=== PATIENT | female | born 2000 | race Caucasian/White ===

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

== ENCOUNTER 2020-01-13 22:20 | Emergency (ER) | payer OTHER ==
[~2020-01-13] VITALS: Ht 170.2 cm; Wt 102.0 kg
--- NOTE | 2020-01-13 22:44 | PHYS DOC ---
Past History Past Medical History: No Pertinent History, Anxiety, Bipolar, Bronchitis, Other Additional Past Medical Histor: cutting Past Surgical History: No Surgical History Smoking: Cigarettes Alcohol Use: None Drug Use: Marijuana, Methamphetamine General Adult HPI: HPI: ".. I ve been having chest pain for the last three days... more wheezing.... the chest pain is central..this bone here (sternum) is tender.. .. and today it has been constant all day.. " Patient is a 19 year old female who presents with above hx and complaints of fever, chills, shortness of breath, with central chest pain that is reproduce on palpation of sternum. Patient denies any trauma. Patient not had any documented fevers but subjective complaints of fever. Patient does continue to smoke tobacco. Not currently using methamphetamine or marijuana. . Patient does not do flu vaccination. In past is followed with Dr. White. 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 Pt. has past history of anxiety, bipolar, depression, self cutting. The patient is taking vitamins. No history of pulmonary DVT's with her family members. No history of DVTs or coagulopathy with her family members. This is her first . Patient denies any vaginal discharge or bleeding. Patient denies any abdomen pain. Denies trauma. Denies any specific ill contacts. Denies COVID risks or contacts. Review of Systems: Review of Systems: Constitutional: Denies fever or chills Eyes: Denies change in visual acuity HENT: Denies nasal congestion or sore throat Respiratory: Complaint of wheezing Cardiovascular: Complaints of sternum chest pain GI: Denies abdominal pain, nausea, vomiting, bloody stools or diarrhea : Denies dysuria Musculoskeletal: Denies back pain or joint pain Integument: Denies rash Neurologic: Denies headache, focal weakness or sensory changes Endocrine: Denies polyuria or polydipsia Lymphatic: Denies swollen glands Psychiatric: Denies depression or anxiety Heart Score: HEART Score for Chest Pain: HEART Score for Chest Pain Response (Comments) Value History Slighlty/Non-Suspicious 0 ECG Normal 0 Age < 45 0 Risk Factors 1 or 2 Risk Factors 1 Troponin < Normal Limit 0 Total 1 Risk Factors: Risk Factors: DM, Current or recent (<one month) smoker, HTN, HLP, family history of CAD, obesity. Risk Scores: Score 0 - 3: 2.5% MACE over next 6 weeks - Discharge Home Score 4 - 6: 20.3% MACE over next 6 weeks - Admit for Clinical Observation Score 7 - 10: 72.7% MACE over next 6 weeks - Early Invasive Strategies Family History: Family History: Noncontributory to presentation Current Medications: Current Meds: See nursing for home meds Allergies: Allergies: Allergies Coded Allergies Type Severity Reaction Last Updated Verified No Known Drug Allergies 01/01/17 No Physical Exam: PE: Constitutional: no acute distress, non-toxic appearance. [] HENT: Normocephalic, atraumatic, bilateral external ears normal, oropharynx moist, no oral exudates, nose normal. [] Eyes: PERRLA, EOMI, conjunctiva normal, no discharge. Glasses Neck: Normal range of motion, no tenderness, supple, no stridor. [] Cardiovascular:Heart rate regular rhythm, no murmur [] Lungs & Thorax: Bilateral breath sounds few scattered wheezes on auscultation [] the sternum tender to palpation Abdomen: Bowel sounds normal, soft, no tenderness, no masses, no pulsatile masses. [] Skin: Warm, dry, no erythema, no rash. Multiple self cutting scars Back: No tenderness, no CVA tenderness. [] Extremities: No tenderness, no cyanosis, no clubbing, ROM intact, no edema. No cording in legs. Neurologic: Alert and oriented X 3, normal motor function, normal sensory function, no focal deficits noted. [] Psychologic: Affect anxious, judgement normal, mood normal. [] EKG: EKG: EKG shows a sinus rhythm at 76 bpm. No findings of acute STEMI with contralateral changes. [] Radiology/Procedures: Radiology/Procedures: [][address] [address] IMAGING REPORT Signed PATIENT: PRICILA DOWLING ACCOUNT: [id number] : 2000 LOCATION: ER AGE: 19 SEX: F EXAM STATUS: DEP ER ORD. PHYSICIAN: RADHA LOPEZ MD REASON: cp PROCEDURE: PORTABLE CHEST 1V EXAM: CHEST 1 VIEW History: Chest pain COMPARISON: 06/16/2019 TECHNIQUE: Single portable radiograph of the chest FINDINGS: The cardiac silhouette is unremarkable. Mild bibasilar lung atelectasis or infiltrates. The costophrenic sulci are clear and well demarcated. IMPRESSION: Mild bibasilar lung atelectasis or infiltrates. Electronically signed by: Dillon Snell MD (01/14/2020 8:40 AM) [id number] DICTATED AND SIGNED BY: DILLON SNELL MD DATE: 01/14/2040 CC: RADHA LOPEZ MD; PCP,NO ~ Course & Med Decision Making: Course & Med Decision Making Pertinent Labs and Imaging studies reviewed. (See chart for details) Pt. observed for Monitor changes x 4 hrs. No rhythm changes or desaturations noted. Pt declined to wait for second trop. level and labs or procedures ( US, CT ect). Requesting discharge. Patient strongly encouraged to stop smoking. Patient to continue vitamins. Patient determined the name of her [employer] doctor and where she prac tices. May plan for hospital where she plans to deliver. Recommend patient be consistent on her care and follow-ups. If concerned about chest pain get outpatient stress testing and cardiology consult at the hospital where her OB practice for continuity of care. May take Tylenol for discomfort. Recommend close follow-up of her primary care and OB. Patient take baby aspirin daily. Pt. must stop smoking. Self isolate. Wear a mask covering nose and mouth and any interactions are away from her home. Impression: 1. Sternal chest wall pain 2. Tobacco abuse 3. Viral syndrome [] Dragon Disclaimer: Keturah Disclaimer: This electronic medical record was generated, in whole or in part, using a voice recognition dictation system. Departure Departure: Disposition: HOME/RESIDENCE PRIOR TO ADM Condition: STABLE Referrals: PCP,ABBY (PCP) Keturah Disclaimer This chart was dictated in whole or in part using Voice Recognition software in a busy, high-work load, and often noisy Emergency Department environment. It may contain unintended and wholly unrecognized errors or omissions. RADHA LOPEZ MD Jan 13, 2020 22:44
[2020-01-13] MEDS ORDERED: ASPIRIN CHEWABLE 81 MG TABLET. PO ONE (23:00)
[2020-01-13] MEDS ORDERED: IV NORMAL SALINE 1,000ML 1,000 ML IV SCH (23:00)
[2020-01-13 23:52] LABS: BASO # 0.1 x10^3/uL (0.0-0.2); BASO % 1 % (0-3); EOS # 0.2 x10^3/uL (0.0-0.7); EOS % 2 % (0-3); HEMATOCRIT 35.9 % (36.0-47.0); LYMPH # 3.2 x10^3/uL (1.0-4.8); LYMPH % 30 % (24-48); MEAN CORPUSCULAR HEMOGLOBIN 30 pg (25-35); MEAN CORPUSCULAR HGB CONC 34 g/dL (31-37); MEAN CORPUSCULAR VOLUME 88 fL (79-100); MONO # 0.7 x10^3/uL (0.0-1.1); MONO % 6 % (0-9); NEUT # 6.5 x10^3uL (1.8-7.7); NEUT % 61 % (31-73); PLATELET COUNT 282 x10^3/uL (140-400); RED BLOOD COUNT 4.08 x10^6/uL (3.50-5.40); RED CELL DISTRIBUTION WIDTH 12.8 % (11.5-14.5); WHITE BLOOD COUNT 10.6 x10^3/uL (4.0-11.0)
[2020-01-13 23:56] LABS: CALCIUM 8.8 mg/dL (8.5-10.1); CREATININE 0.6 mg/dL (0.6-1.0); GFR 128.8; POTASSIUM 3.4 mmol/L (3.5-5.1)
[2020-01-13 23:57] LABS: BARBITURATES NEG (NEG); BENZODIAZEPINES NEG (NEG); CANNABINOIDS NEG (NEG); COCAINE NEG (NEG); METHADONE NEG (NEG); OPIATES NEG (NEG); PHENCYCLIDINE NEG (NEG)
[2020-01-13 23:58] LABS: AMPHETAMINE/METHAMPHETAMINE NEG (NEG)
[2020-01-14 00:11] LABS: BILIRUBIN,URINE NEG (NEG); CLARITY,URINE CLEAR; COLOR,URINE YELLOW; GLUCOSE,URINE NEG (NEG)
[2020-01-14 00:11] LABS: ALBUMIN 2.8 g/dL (3.4-5.0); DIRECT BILIRUBIN 0.1 mg/dL (0.0-0.2); MAGNESIUM 1.8 mg/dL (1.8-2.4); TOTAL BILIRUBIN 0.1 mg/dL (0.2-1.0); TOTAL PROTEIN 6.5 g/dL (6.4-8.2)
[2020-01-14 00:12] LABS: BACTERIA,URINE 0 /HPF (0-FEW); NITRITE,URINE NEG (NEG); SQUAMOUS EPITHELIAL CELL,UR FEW /LPF; UROBILINOGEN,URINE 0.2 mg/dL (0.2 mg/dL); WBC,URINE OCC /HPF (0-4)
[2020-01-14] MEDS ORDERED: MAGNESIUM HYDROXIDE 2,400 MG/30 ML ORAL.SUSP. PO ONE (00:15)
[2020-01-14] MEDS ORDERED: POTASSIUM CHLORIDE 20 MEQ TABLET.ER. PO ONE (00:15)
[2020-01-14 00:20] LABS: INFLUENZA A PATIENT NEGATIVE (NEGATIVE); INFLUENZA B PATIENT NEGATIVE (NEGATIVE)
[2020-01-14 00:47] VITALS: BP 129/77
--- NOTE | 2020-01-14 06:41 | EKG ---
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
--- NOTE | 2020-01-14 08:43 | RAD ---
EXAM: CHEST 1 VIEW History: Chest pain COMPARISON: 06/16/2019 TECHNIQUE: Single portable radiograph of the chest FINDINGS: The cardiac silhouette is unremarkable. Mild bibasilar lung atelectasis or infiltrates. The costophrenic sulci are clear and well demarcated. IMPRESSION: Mild bibasilar lung atelectasis or infiltrates. Electronically signed by: Dillon Snell MD (01/14/2020 8:40 AM) [id number]
== END 2020-01-14 02:30 | disposition home or self-care (01) ==
LOC: ER 22:20
DX: O26.892 Other specified pregnancy related conditions, second trimester (principal); R07.89 Other chest pain; B34.9 Viral infection, unspecified; O99.332 Smoking (tobacco) complicating pregnancy, second trimester; Z3A.19 19 weeks gestation of pregnancy
CPT/HCPCS: 36415; 71045; 80048; 80076; 80307; 81001; 82550; 83690; 83735; 83880; 84443; 84484; 85025; 85379; 85610; 85730; 87070; 87804; 87880; 93005; 96360; 96361; 99285; J7030

== ENCOUNTER 2020-01-26 17:42 | Emergency (ER) | payer OTHER ==
[~2020-01-26] VITALS: Ht 170.2 cm; Wt 102.0 kg
--- NOTE | 2020-01-26 18:25 | PHYS DOC ---
Past History Past Medical History: No Pertinent History, Anxiety, Bipolar, Bronchitis, Other Additional Past Medical Histor: cutting Past Surgical History: No Surgical History Smoking: Cigarettes Alcohol Use: None Drug Use: Marijuana, Methamphetamine General Adult EDM: Chief Complaint: PAIN ON URINATION HPI: HPI: 19 yo female that is 20 weeks presents with dysuria for a couple of weeks. She has had intermittant symptoms for more than a month. Her last OB visit, her urine was fine. She wants to be tested for STDs. She states she is in a monogomous relationship and no high risk behaviors. Denies vaginal discharge, odor or itching. "People" told her her symptoms are not a typical UTI, so she needed an STD check. She is switching OBs, so she doesn't have an appointment for a month. Denies fever or chills. Review of Systems: Review of Systems: Constitutional: Denies fever or chills Eyes: Denies change in visual acuity HENT: Denies nasal congestion or sore throat Respiratory: Denies cough or shortness of breath Cardiovascular: Denies chest pain or edema GI: Denies abdominal pain, nausea, vomiting, bloody stools or diarrhea : Dysuria Musculoskeletal: Denies back pain or joint pain Integument: Denies rash Neurologic: Denies headache, focal weakness or sensory changes Endocrine: Denies polyuria or polydipsia Lymphatic: Denies swollen glands Psychiatric: Denies depression or anxiety Heart Score: Risk Factors: Risk Factors: DM, Current or recent (<one month) smoker, HTN, HLP, family history of CAD, obesity. Risk Scores: Score 0 - 3: 2.5% MACE over next 6 weeks - Discharge Home Score 4 - 6: 20.3% MACE over next 6 weeks - Admit for Clinical Observation Score 7 - 10: 72.7% MACE over next 6 weeks - Early Invasive Strategies Allergies: Allergies: Allergies Coded Allergies Type Severity Reaction Last Updated Verified No Known Drug Allergies 01/01/17 No Physical Exam: PE: Constitutional: Well developed, well nourished, no acute distress, non-toxic appearance. [] HENT: Normocephalic, atraumatic, bilateral external ears normal, oropharynx moist, no oral exudates, nose normal. [] Eyes: PERRLA, EOMI, conjunctiva normal, no discharge. [] Neck: Normal range of motion, no tenderness, supple, no stridor. [] Cardiovascular:Heart rate regular rhythm, no murmur [] Lungs & Thorax: Bilateral breath sounds clear to auscultation [] Abdomen: Bowel sounds normal, soft, no tenderness, no masses, no pulsatile masses. [] Skin: Warm, dry, no erythema, no rash. [] Back: No tenderness, no CVA tenderness. [] Extremities: No tenderness, no cyanosis, no clubbing, ROM intact, no edema. [] Neurologic: Alert and oriented X 3, normal motor function, normal sensory function, no focal deficits noted. [] Psychologic: Affect normal, judgement normal, mood normal. : Shaved pubic hair, normal external exam. Vaginal discharge a clear to light white. No obvious odor. No pain with exam. Cervix not completely visualized. [] EKG: EKG: [] Radiology/Procedures: Radiology/Procedures: [] Course & Med Decision Making: Course & Med Decision Making Pertinent Labs and Imaging studies reviewed. (See chart for details) The patient does not really want to wait around for her results she would like to go home and if we need to send in a prescription that is fine with her. This is reasonable. Her urinalysis is negative for infection. She is stable for discharge at this time. [] Keturah Disclaimer: Keturah Disclaimer: This electronic medical record was generated, in whole or in part, using a voice recognition dictation system. Departure Departure: Impression: Primary Impression: Dysuria Additional Impression: Disposition: 01 DC HOME SELF CARE/HOMELESS Condition: STABLE Referrals: PCP,NO (PCP) Patient Instructions: Dysuria-Brief SARAY APARICIO DO Jan 26, 2020 18:25
[2020-01-26 19:00] LABS: BACTERIA,URINE 0 /HPF (0-FEW); BILIRUBIN,URINE NEG (NEG); CLARITY,URINE CLEAR; COLOR,URINE STRAW; GLUCOSE,URINE NEG (NEG); NITRITE,URINE NEG (NEG); RBC,URINE 0 /HPF (0-2); SQUAMOUS EPITHELIAL CELL,UR FEW /LPF; UROBILINOGEN,URINE 0.2 mg/dL (0.2 mg/dL); WBC,URINE 0 /HPF (0-4)
[2020-01-29 18:09] LABS: CHLAMYDIA PROBE Negative (Negative)
== END 2020-01-26 19:45 | disposition home or self-care (01) ==
LOC: ER 17:42
DX: O26.892 Other specified pregnancy related conditions, second trimester (principal); R30.0 Dysuria; O99.332 Smoking (tobacco) complicating pregnancy, second trimester; Z3A.20 20 weeks gestation of pregnancy
CPT/HCPCS: 36415; 81001; 87491; 87591; 99283; Q0111

== ENCOUNTER 2020-02-26 11:45 | Emergency (ER) | payer OTHER ==
[~2020-02-26] VITALS: Ht 170.2 cm; Wt 104.5 kg
[2020-02-26 11:50] VITALS: BP 146/78
--- NOTE | 2020-02-26 12:41 | PHYS DOC ---
Past History Past Medical History: Anxiety, Bipolar, Bronchitis, Other Additional Past Medical Histor: cutting Past Surgical History: No Surgical History Smoking: Cigarettes Alcohol Use: None Drug Use: Marijuana, Methamphetamine General Adult EDM: Chief Complaint: SORE THROAT HPI: HPI: Patient is a 19-year-old female who is 6 months presents with a 2-day history of cough congestion and a sore throat. Patient denies any fevers chills or vomiting. Patient states symptoms are worse with swallowing and activity and better with rest. Patient has no known sick contacts. Patient denies any complaints at this time. Patient states the baby is moving fine denies abdominal pain. Review of Systems: Review of Systems: Constitutional: Denies fever or chills Eyes: Denies change in visual acuity HENT: Complains of nasal congestion sore throat Respiratory: Complains of cough but denies shortness of breath Cardiovascular: Denies chest pain or edema GI: Denies abdominal pain, nausea, vomiting, bloody stools or diarrhea : Denies dysuria, denies vaginal bleeding Musculoskeletal: Denies back pain or joint pain Integument: Denies rash Neurologic: Denies headache, focal weakness or sensory changes Endocrine: Denies polyuria or polydipsia Lymphatic: Denies swollen glands Psychiatric: Denies depression or anxiety Allergies: Allergies: Allergies Coded Allergies Type Severity Reaction Last Updated Verified No Known Drug Allergies 01/01/17 No Physical Exam: PE: Constitutional: Well developed, well nourished, no acute distress, non-toxic appearance. [] HENT: Normocephalic, atraumatic, bilateral external ears normal, pharyngeal erythema without tonsillar exudate or abscess, nose normal. [] Eyes: PERRLA, EOMI, conjunctiva normal, no discharge. [] Neck: Normal range of motion, no tenderness, supple, no stridor. [] No meningeal signs Cardiovascular:Heart rate regular rhythm, peripheral pulses are intact, cap refill is brisk Lungs & Thorax: Bilateral breath sounds clear, no respiratory distress Abdomen: Gravid uterus is nontender without guarding or rebound Skin: Warm, dry, no erythema, no rash. [] Back: No tenderness, no CVA tenderness. [] Extremities: No tenderness, no cyanosis, no clubbing, ROM intact, no edema. [] Neurologic: Alert and oriented X 3, normal motor function, normal sensory function, no focal deficits noted. [] Psychologic: Affect normal, judgement normal, mood normal. [] Current Patient Data: Labs: Laboratory Tests Test 02/26/20 12:58 Group A Streptococcus Rapid Negative Vital Signs: Vital Signs Date Time Temp Pulse Resp B/P (MAP) Pulse Ox O2 Delivery O2 Flow Rate FiO2 02/26/20 11:50 98.3 98 16 146/78 (100) 96 Room Air EKG: EKG: [] Radiology/Procedures: Radiology/Procedures: [] Heart Score: Risk Factors: Risk Factors: DM, Current or recent (<one month) smoker, HTN, HLP, family history of CAD, obesity. Risk Scores: Score 0 - 3: 2.5% MACE over next 6 weeks - Discharge Home Score 4 - 6: 20.3% MACE over next 6 weeks - Admit for Clinical Observation Score 7 - 10: 72.7% MACE over next 6 weeks - Early Invasive Strategies Course & Med Decision Making: Course & Med Decision Making Pertinent Labs and Imaging studies reviewed. (See chart for details) [] 19-year-old female presents with URI symptoms. Patient has a negative strep test. No peritonsillar abscess on exam. Patient is offered COVID-19 ~isolate till results come back. Keturah Disclaimer: Keturah Disclaimer: This electronic medical record was generated, in whole or in part, using a voice recognition dictation system. Departure Departure: Impression: Primary Impression: Viral pharyngitis Disposition: 01 DC HOME SELF CARE/HOMELESS Condition: STABLE Referrals: PCPABBY (PCP) [facility] [address] [place] [address] [facility] [address] [place] [address] [facility] [address] Patient Instructions: Viral Syndrome Additional Instructions: You have been tested for or diagnosed with COVID-19. It is an infection caused by a new type of coronavirus. COVID-19 will cause cold-like or mild flu symptoms in most. It can cause more severe symptoms like problems breathing in some. There is no treatment for COVID-19. The body will clear the infection over time. Self-care will help to ease discomfort. Steps to Take: Self-Care Rest as needed. Healthy habits may help you feel better. Steps include: Choose healthy foods including fruits and vegetables. Drink water throughout the day. Get plenty of sleep each night. If you smoke, try to quit. It may ease breathing. Avoid alcohol. Keep Others Healthy The virus can spread to others. Droplets are released every time you sneeze or cough. The droplets can get into the mouth, nose, or eyes of people near you and lead to infection. To lower the chances of spreading COVID-19 to others: Stay at home until your doctor has said it is safe to leave. If you tested positive this will mean staying isolated until both of the following are true: At least 7 days have passed since the start of illness. You are free of fever for at least 72 hours without the use of medicine. During this time: - Avoid public areas, events, or transportation. Do not return to work or school until your doctor has said it is safe to do so. - Call ahead if you need to go to a medical center. Let them know you may have COVID-19. It will help them guide you where to go. They may also ask you to wear a facemask when you come to the office. - If you call for emergency medical services, let them know you may have COVID- 19. While at home: - Try to avoid close contact with others. Stay about 6 feet away. - If possible, spend most of your time in a separate room from others. - Use a face mask if you will be in close contact with others such as sharing a room or vehicle. - Have someone wipe down common surfaces in the home. Use household telecommunications repairer e very day on areas like doorknobs, counters, or sinks. - Cough or sneeze into a tissue. Throw the tissue away right after use. If a tissue is not available, cough or sneeze into your elbow. - Wash your hands often. Wash them after sneezing or coughing. Use soap and water and wash for at least 20 seconds. Alcohol based hand venetian blind cleaner can be used if soap and water is not available. - Do not prepare food for others. Avoid sharing personal items like forks, spoons, or toothbrushes. - Avoid close contact with pets while you are sick. There is no evidence of the virus passing to pets. This is a safety step until more is known about this virus. Isolation can be frustrating. Social interaction can help. Keep in touch with friends and family through phone and tech options. You can still interact with others in your home, just keep a safe distance of about 6 feet. Follow-up: Your doctors office will check in with you to see if there are any changes in your health. You may be asked to keep track of symptoms to share with them. They will also let you know when you are clear to be in public again. Problems to Look Out For: Contact your doctor if your recovery is not going as you expect. Get emergency care if you have problems such as: - Trouble breathing - Nonstop chest pain or pressure - Changes in awareness, confusion, or problems waking - Lips or face have bluish color - Worsening of symptoms If you think you have an emergency, call for emergency medical services right away. As taken from [facility] EMERGENCY DEPARTMENT GENERAL DISCHARGE INSTRUCTIONS THANK YOU for coming to [facility] (ED) today and trusting us with your care. We trust that you had a positive experience in our Emergency Department. If you wish to speak to the department Management you can contact the emergency department at YOUR FOLLOW UP INSTRUCTIONS ARE FOLLOWS: Do you have a private doctor? If you do not have a private doctor, please ask for a resource list of physicians or clinics that may be able to assist you with follow up care. The Emergency Physician has interpreted your x-rays. The X-ray specialist will also review them. If there is a change in the findings you will be notified in 48 hours when at all possible. A lab test or lab culture may have been done, your results will be reviewed and you will be notified if you need a change in treatment. ADDITIONAL INSTRUCTIONS AND INFORMATION Your care today has been supervised by a physician who is specially trained in emergency care. Many problems require more than one evaluation for a complete diagnosis and treatment. We recommend that you schedule your follow up appointment as recommended to ensure complete treatment of your illness or injury. If you are unable to obtain follow up care and continue to have a problem, or if your condition worsens we recommend that you return to the ED. We are not able to safely determine your condition over the phone nor are we able to give sound medical advice over the phone. For these safety reasons, if you call for medical advice we will ask you to come to the ED for further evaluation If you have any questions regarding these discharge instructions please call the ED at . SAFETY INFORMATION In the interest of safety, wellness, and injury prevention; we encourage you to wear your seatbelt, if you smoke; quit smoking, and we encourage your family to use protective helmet for bicycling and other sporting events that present an increased risk for head injury. IF YOUR SYMPTOMS WORSEN OR NEW SYMPTOMS DEVELOP, OR YOU HAVE CONCERNS ABOUT YOUR CONDITION; OR IF YOUR CONDITION WORSENS WHILE YOU ARE WAITING FOR YOUR FOLLOW UP APPOINTMENT; EITHER CONTACT YOUR PRIMARY CARE DOCTOR, THE PHYSICIAN WHOSE NAME AND NUMBER YOU WERE GIVEN, OR RETURN TO THE ED IMMEDIATELY. AZEEM MANCILLA MD Feb 26, 2020 12:41
== END 2020-02-26 13:37 | disposition home or self-care (01) ==
LOC: ER 11:45
DX: O26.892 Other specified pregnancy related conditions, second trimester (principal); J02.8 Acute pharyngitis due to other specified organisms; B97.89 Other viral agents as the cause of diseases classified elsewhere; O99.332 Smoking (tobacco) complicating pregnancy, second trimester; Z3A.24 24 weeks gestation of pregnancy; Z20.828 Contact with and (suspected) exposure to other viral communicable diseases
CPT/HCPCS: 87070; 87880; 99283; C9803; U0003

== ENCOUNTER 2020-03-29 15:24 | Emergency (ER) | payer OTHER ==
[~2020-03-29] VITALS: Ht 170.2 cm; Wt 111.1 kg
[2020-03-29 15:24] VITALS: BP 127/75
--- NOTE | 2020-03-29 15:49 | PHYS DOC ---
Past History Past Medical History: Anxiety, Bipolar, Bronchitis, Other Additional Past Medical Histor: cutting Past Surgical History: No Surgical History Smoking: Cigarettes Alcohol Use: None Drug Use: Marijuana, Methamphetamine General Adult HPI: HPI: History obtained from patient. Patient is a 19-year-old female G1, P0 estimated 29 weeks who presents with chief complaint of concern for decreased activity. She states over the past week she has felt like her baby is moving less frequently than normal. She researched online and learned that the baby should kick and move approximately 10 times per hour. She states she is only felt approximately 5 kicks and movements per hour. She states she called her fish fryer provider who has established follow-up appointment for her on April 02. She states that she has had an ultrasound to confirm intrauterine . She denies any abdominal pain. Denies vaginal bleeding. Denies any urinary symptoms. She states her greatest concern was making sure baby had appropriate heart tones. Patient has no other complaints. Review of Systems: Review of Systems: Constitutional: Denies fever or chills Eyes: Denies change in visual acuity HENT: Denies nasal congestion or sore throat Respiratory: Denies cough or shortness of breath Cardiovascular: Denies chest pain or edema GI: Denies abdominal pain, nausea, vomiting, bloody stools or diarrhea : Denies dysuria Musculoskeletal: Denies back pain or joint pain Integument: Denies rash Neurologic: Denies headache, focal weakness or sensory changes Endocrine: Denies polyuria or polydipsia Lymphatic: Denies swollen glands Psychiatric: Denies depression or anxiety Allergies: Allergies: Allergies Coded Allergies Type Severity Reaction Last Updated Verified No Known Drug Allergies 01/01/17 No Physical Exam: PE: Constitutional: Well developed, well nourished, no acute distress, non-toxic appearance. [] HENT: Normocephalic, atraumatic, bilateral external ears normal, oropharynx mo ist, no oral exudates, nose normal. [] Eyes: PERRLA, EOMI, conjunctiva normal, no discharge. [] Neck: Normal range of motion, no tenderness, supple, no stridor. [] Cardiovascular:Heart rate regular rhythm, no murmur [] Lungs & Thorax: Bilateral breath sounds clear to auscultation [] Abdomen: Gravid uterus. No reproducible tenderness. Skin: Warm, dry, no erythema, no rash. [] Back: No tenderness, no CVA tenderness. [] Extremities: No tenderness, no cyanosis, no clubbing, ROM intact, no edema. [] Neurologic: Alert and oriented X 3, normal motor function, normal sensory function, no focal deficits noted. [] Psychologic: Affect normal, judgement normal, mood normal. [] EKG: EKG: [] Radiology/Procedures: Radiology/Procedures: [] Heart Score: Risk Factors: Risk Factors: DM, Current or recent (<one month) smoker, HTN, HLP, family history of CAD, obesity. Risk Scores: Score 0 - 3: 2.5% MACE over next 6 weeks - Discharge Home Score 4 - 6: 20.3% MACE over next 6 weeks - Admit for Clinical Observation Score 7 - 10: 72.7% MACE over next 6 weeks - Early Invasive Strategies Course & Med Decision Making: Course & Med Decision Making Pertinent Labs and Imaging studies reviewed. (See chart for details) [] Patient is a pleasant and well-appearing 19-year-old female G1, P0 who presen ts with chief complaint of concern of decreased movement. She estimates she is 29 weeks . Vital signs normal. Exam without any reproducible abdominal tenderness. Denies any abdominal pain or bleeding. Laboratory analysis will be deferred. Bedside Doppler did reveal heart tones approximate 150 bpm. This was consistently identified and easily reproduced. G iven the patient reports no complaints of abdominal pain or vaginal bleeding I do not feel ultrasound is indicated. She has had previous ultrasound to confirm intrauterine . She does have follow-up point with her fish fryer provider in 4 days. She states her greatest concern is establishing heart tones. Return precautions were discussed and understood. Stable for discharge home. Keturah Disclaimer: Keturah Disclaimer: This electronic medical record was generated, in whole or in part, using a voice recognition dictation system. Departure Departure: Impression: Primary Impression: Concern about current without diagnosis Disposition: 01 DC HOME SELF CARE/HOMELESS Condition: STABLE Referrals: PCP,NO (PCP) Patient Instructions: Additional Instructions: Please follow-up with your fish fryer provider at your regularly scheduled appointment in 4 days. ALEXANDRE PEREZ DO Mar 29, 2020 15:49
== END 2020-03-29 15:52 | disposition home or self-care (01) ==
LOC: ER 15:24
DX: O36.8130 Decreased fetal movements, third trimester, not applicable or unspecified (principal); F41.9 Anxiety disorder, unspecified; F31.9 Bipolar disorder, unspecified; F17.210 Nicotine dependence, cigarettes, uncomplicated; F12.90 Cannabis use, unspecified, uncomplicated; F19.90 Other psychoactive substance use, unspecified, uncomplicated; Z3A.29 29 weeks gestation of pregnancy
CPT/HCPCS: 99281

== ENCOUNTER 2020-11-10 19:30 | Emergency (ER) | payer OTHER ==
[~2020-11-10] VITALS: Ht 170.2 cm; Wt 111.1 kg
--- NOTE | 2020-11-10 19:43 | PHYS DOC ---
Past History Past Medical History: Anxiety, Bipolar, Bronchitis, Other Additional Past Medical Histor: cutting Past Surgical History: No Surgical History Smoking: Cigarettes Alcohol Use: None Drug Use: Marijuana, Methamphetamine Adult General Chief Complaint Chief Complaint: SHORTNESS OF BREATH HPI HPI Patient is a 20-year-old female that was diagnosed with Covid last week who presents to the emergency department with productive cough. States she also has some body aches and fatigue but denies any fevers, dyspnea on exertion, abdominal pain, nausea, vomiting, diarrhea. States she is able to eat and drink normally. States he is making urine and stool normally. States she seen her primary care physician who knows she is Covid positive it and is currently quarantined. Review of Systems Review of Systems Constitutional: Denies fever or chills [] Eyes: Denies change in visual acuity, redness, or eye pain [] HENT: Denies nasal congestion or sore throat [] Respiratory: Denies cough or shortness of breath [] Cardiovascular: No additional information not addressed in HPI [] GI: Denies abdominal pain, nausea, vomiting, bloody stools or diarrhea [] : Denies dysuria or hematuria [] Musculoskeletal: Denies back pain or joint pain [] Integument: Denies rash or skin lesions [] Neurologic: Denies headache, focal weakness or sensory changes [] Endocrine: Denies polyuria or polydipsia [] All other systems were reviewed and found to be within normal limits, except as documented in this note. Allergies Allergies Allergies Coded Allergies Type Severity Reaction Last Updated Verified No Known Drug Allergies 01/01/17 No Physical Exam Physical Exam Constitutional: Well developed, well nourished, no acute distress, non-toxic appearance. [] HENT: Normocephalic, atraumatic, bilateral external ears normal, oropharynx moist, no oral exudates, nose normal. [] Eyes: PERRLA, EOMI, conjunctiva normal, no discharge. [] Neck: Normal range of motion, no tenderness, supple, no stridor. [] Cardiovascular:Heart rate regular rhythm, no murmur [] Lungs & Thorax: Bilateral breath sounds clear to auscultation [] Abdomen: Bowel sounds normal, soft, no tenderness, no masses, no pulsatile masses. [] Skin: Warm, dry, no erythema, no rash. [] Extremities: No tenderness, no cyanosis, no clubbing, ROM intact, no edema. [] Neurologic: Alert and oriented X 3, no focal deficits noted. [] Psychologic: Affect normal, judgement normal, mood normal. [] EKG EKG [] Radiology/Procedures Radiology/Procedures Chest x-ray not concerning. [] Heart Score C/O Chest Pain: N/A Risk Factors: Risk Factors: DM, Current or recent (<one month) smoker, HTN, HLP, family history of CAD, obesity. Risk Scores: Risk Factors: DM, Current or recent (<one month) smoker, HTN, HLP, family history of CAD, obesity. Course & Med Decision Making Course & Med Decision Making Patient is a 20-year-old female who presents to the emergency department Covid positive with productive cough Vital signs not concerning. Physical exam noted above. Patient alert and oriented no acute distress. Chest x-ray not concerning. Given Tylenol and ibuprofen. Patient denies need for codeine cough syrup. Covid education. Advised to follow-up in the morning with her primary care physician. Gave return precautions to the ED. Patient grateful, verbalized understanding and agreed with plan of discharge. [] Dragon Disclaimer Dragon Disclaimer This electronic medical record was generated, in whole or in part, using a voice recognition dictation system. Departure Departure: Impression: Primary Impression: Lab test positive for detection of COVID-19 virus Disposition: 01 HOME / SELF CARE / HOMELESS Condition: GOOD Referrals: PCPABBY (PCP) JAME[facility] SEGOVIA Patient Instructions: Viral Syndrome Additional Instructions: You have been tested for or diagnosed with COVID-19. It is an infection caused by a new type of coronavirus. COVID-19 will cause cold-like or mild flu symptoms in most. It can cause more severe symptoms like problems breathing in some. There is no treatment for COVID-19. The body will clear the infection over time. Self-care will help to ease discomfort. Steps to Take: Self-Care Rest as needed. Healthy habits may help you feel better. Steps include: Choose healthy foods including fruits and vegetables. Drink water throughout the day. Get plenty of sleep each night. If you smoke, try to quit. It may ease breathing. Avoid alcohol. Keep Others Healthy The virus can spread to others. Droplets are released every time you sneeze or cough. The droplets can get into the mouth, nose, or eyes of people near you and lead to infection. To lower the chances of spreading COVID-19 to others: Stay at home until your doctor has said it is safe to leave. If you tested positive this will mean staying isolated until both of the following are true: At least 7 days have passed since the start of illness. You are free of fever for at least 72 hours without the use of medicine. During this time: - Avoid public areas, events, or transportation. Do not return to work or school until your doctor has said it is safe to do so. - Call ahead if you need to go to a medical center. Let them know you may have COVID-19. It will help them guide you where to go. They may also ask you to wear a facemask when you come to the office. - If you call for emergency medical services, let them know you may have COVID- 19. While at home: - Try to avoid close contact with others. Stay about 6 feet away. - If possible, spend most of your time in a separate room from others. - Use a face mask if you will be in close contact with others such as sharing a room or vehicle. - Have someone wipe down common surfaces in the home. Use household drawer in jacquard loom every day on areas like doorknobs, counters, or sinks. - Cough or sneeze into a tissue. Throw the tissue away right after use. If a tissue is not available, cough or sneeze into your elbow. - Wash your hands often. Wash them after sneezing or coughing. Use soap and water and wash for at least 20 seconds. Alcohol based hand dry cleaner presser can be used if soap and water is not available. - Do not prepare food for others. Avoid sharing personal items like forks, spoons, or toothbrushes. - Avoid close contact with pets while you are sick. There is no evidence of the virus passing to pets. This is a safety step until more is known about this virus. Isolation can be frustrating. Social interaction can help. Keep in touch with friends and family through phone and tech options. You can still interact with others in your home, just keep a safe distance of about 6 feet. Follow-up: Your doctors office will check in with you to see if there are any changes in y our health. You may be asked to keep track of symptoms to share with them. They will also let you know when you are clear to be in public again. Problems to Look Out For: Contact your doctor if your recovery is not going as you expect. Get emergency care if you have problems such as: - Trouble breathing - Nonstop chest pain or pressure - Changes in awareness, confusion, or problems waking - Lips or face have bluish color - Worsening of symptoms If you think you have an emergency, call for emergency medical services right away. [facility] 10, 2020 19[facility]43
[2020-11-10] MEDS ORDERED: ACETAMINOPHEN 500 MG TABLET PO ONE (19:45)
[2020-11-10] MEDS ORDERED: IBUPROFEN 600 MG TABLET. PO ONE (19:45)
[2020-11-10 19:57] VITALS: BP 135/75
[2020-11-10] MEDS: guaiFENesin/CODEINE 100mg/10mg 5 ML LIQUID PO PRN ×2 (19:57→20:28)
--- NOTE | 2020-11-10 20:32 | RAD ---
XR CHEST 1V History: Reason: cough, covid / Spl. Instructions: / History: Comparison: January 13, 2020 Findings: No consolidation or pleural effusion. Normal heart size. No pneumothorax. Left first rib deformity, u nchanged. Impression: 1. No acute cardiopulmonary process. Electronically signed by: Ren Viveros DO (11/10/2020 8:30 PM) [facility]
== END 2020-11-10 20:30 | disposition home or self-care (01) ==
LOC: ER 19:30
DX: U07.1 COVID-19 (principal); F41.9 Anxiety disorder, unspecified; F31.9 Bipolar disorder, unspecified; F17.210 Nicotine dependence, cigarettes, uncomplicated
CPT/HCPCS: 71045; 81025; 99284

== ENCOUNTER 2020-11-14 01:12 | Emergency (ER) | payer OTHER ==
[~2020-11-14] VITALS: Ht 170.2 cm; Wt 112.1 kg
--- NOTE | 2020-11-14 01:16 | PHYS DOC ---
Past History Past Medical History: Anxiety, Bipolar, Bronchitis, Other Additional Past Medical Histor: cutting Past Surgical History: No Surgical History Smoking: Cigarettes Alcohol Use: None Drug Use: Marijuana, Methamphetamine General Adult HPI: HPI: ".. I got COVID about 11 days ago.. but I am no better.. and now I am short of breath.. and got chest pain all day... " Patient is a 20 year old female who presents with above hx and complaints chest pain, cough, fatigue, dyspnea, malaise, arthralgia, myalgia. Patient last seen in the emergency room on for cough with productive sputum. Patient states now she is so short of breath she cannot smoke. Patient did not get Covid vaccination and does not take flu vaccination. Patient normally follows with Dr. Brown. No recent travel. No specific ill contacts. No history of trauma. No history of immunosuppression. Does have a history of anxiety, bipolar disorder, bronchitis, tobacco, marijuana and methamphetamine use. Patient normally follows with Dr. Brown. Pt. has apt. today at 1300 hrs. Review of Systems: Review of Systems: Constitutional: Denies fever or chills Eyes: Denies change in visual acuity HENT: Denies nasal congestion or sore throat Respiratory: Complains of cough and shortness of breath Cardiovascular: Complains of chest pain . GI: Complains of, nausea. Denies, vomiting, bloody stools or diarrhea : Denies dysuria Musculoskeletal: Complains of generalized muscle, and arthralgiar joint pain \\ Integument: Denies rash Neurologic: Denies headache, focal weakness or sensory changes Endocrine: Denies polyuria or polydipsia Lymphatic: Denies swollen glands Psychiatric: Complains of anxiety Family History: Family History: Noncontributory to presentation Current Medications: Current Meds: See nursing for home meds Allergies: Allergies: Allergies Coded Allergies Type Severity Reaction Last Updated Verified No Known Drug Allergies 01/01/17 No Physical Exam: PE: Constitutional: Moderate acute distress, non-toxic appearance. [] HENT: Normocephalic, atraumatic, bilateral external ears normal, oropharynx moist, no oral exudates, nose normal. [] Eyes: PERRLA, EOMI, conjunctiva normal, no discharge. Glasses Neck: Normal range of motion, no tenderness, supple, no stridor. [] Cardiovascular:Heart rate regular rhythm, no murmur []. Monitor shows no acute cardiac findings. Normal sinus rhythm and at times bradycardia when resting. Lungs & Thorax: Bilateral breath sounds equal apex with scattered wheezes on auscultation [] Abdomen: Bowel sounds normal, soft, no tenderness, no masses, no pulsatile masses. Obese. Skin: Warm, dry, no erythema, no rash. [] Old cutting scars. Back: No tenderness, no CVA tenderness. [] Extremities: Generalized bone and muscle tenderness, no cyanosis, no clubbing, ROM intact, no edema. No cording appreciated Neurologic: Alert and oriented X 3, normal motor function, normal sensory function, no focal deficits noted. [] Psychologic: Affect anxious, judgement normal, mood normal. [] EKG: EKG: My interpretation of EKG shows a sinus rhythm at 70 bpm with no acute morphology time of EKGs 0139 hours My interpretation of EKG #2 shows a bradycardia at 50 bpm. No acute morphology. Time of EKG is 0 450 hours [] Radiology/Procedures: Radiology/Procedures: [][place] [address] IMAGING REPORT Signed PATIENT: PRICILA DOWLING ACCOUNT: [id number] : 2000 LOCATION: ER AGE: 20 SEX: F EXAM STATUS: REG ER ORD. PHYSICIAN: RADHA LOPEZ MD REASON: OMNI 350,70 ML IV. Hx. COVID + , 10 days ago, CP, Dyspnea PROCEDURE: CT ANGIOGRAPHY CHEST EXAM: CT ANGIOGRAPHY OF THE CHEST WITH AND WITHOUT CONTRAST. HISTORY: Chest pain, COVID-19. TECHNIQUE: Computed tomographic angiography of the chest was performed before and after the intravenous administration of contrast. 3-D maximum intensity projections were also performed. One or more of the following individualized dose reduction techniques were utilized for this examination: 1. Automated exposure control. 2. Adjustment of the mA and/or kV according to patient size. 3. Use of iterative reconstruction technique. COMPARISON: None. FINDINGS: Images of the upper abdomen reveal no acute abnormality. Bone windows reveal no suspicious lesions. No pulmonary emboli are identified. There is no aortic dissection or aneurysm. There are no pathologically enlarged mediastinal or axillary lymph nodes. Soft tissue density in the anterior mediastinum is consistent with a thymic remnant. There is no pleural or pericardial effusion. The heart is not enlarged. Lung windows reveal no infiltrates. IMPRESSION: 1. No pulmonary embolism. No infiltrates. Electronically signed by: Harry Reeves MD (11/14/2020 4:34 AM) [facility] DICTATED AND SIGNED BY: LUI REEVES MD DATE: 11/14/20 0432 CC: RADHA LOPEZ MD; WALLACE BROWN MD ~MTH0 0 Heart Score: C/O Chest Pain: Yes HEART Score for Chest Pain: HEART Score for Chest Pain Response (Comments) Value History Slighlty/Non-Suspicious 0 ECG Normal 0 Age < 45 0 Risk Factors 1 or 2 Risk Factors 1 Troponin < Normal Limit 0 Total 1 Risk Factors: Risk Factors: DM, Current or recent (<one month) smoker, HTN, HLP, family history of CAD, obesity. Risk Scores: Score 0 - 3: 2.5% MACE over next 6 weeks - Discharge Home Score 4 - 6: 20.3% MACE over next 6 weeks - Admit for Clinical Observation Score 7 - 10: 72.7% MACE over next 6 weeks - Early Invasive Strategies Course & Med Decision Making: Course & Med Decision Making Pertinent Labs and Imaging studies reviewed. (See chart for details) Keep follow up with Dr. Brown as planned today. Continue Self Isolation and wear mask if still having symptoms. Return if any concerns. Impression: 1. Hx. + COVID Infection Dx 11 days ago 2. Chest Pain 3. Hx. Tobacco, Marijuana and Methamphetamine use 4. Hx. Non-compliance with Medical treatment plans 5. Viral Syndrome [] Dragon Disclaimer: Dragon Disclaimer: This electronic medical record was generated, in whole or in part, using a voice recognition dictation system. Departure Departure: Referrals: WALLACE BROWN MD (PCP) RADHA LOPEZ MD Nov 14, 2020 01:16
[2020-11-14] MEDS ORDERED: APIXABAN 5 MG TABLET. PO ONE (01:26)
[2020-11-14] MEDS ORDERED: IV RINGERS SOLUTION,LACTATED 1,000 ML IV SCH (01:30)
[2020-11-14] MEDS ORDERED: ASPIRIN 325 MG TABLET PO ONE (01:30)
[2020-11-14] MEDS ORDERED: IOHEXOL 350 MG/ML 100 ML VIAL. IV ONE (01:45)
[2020-11-14] MEDS ORDERED: CONTRAST GIVEN. MC PRN (01:45)
--- NOTE | 2020-11-14 01:50 | EKG ---
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
[2020-11-14 02:15] LABS: BASO % 1 % (0-3); EOS # 0.1 x10^3/uL (0.0-0.7); EOS % 1 % (0-3); HEMATOCRIT 37.2 % (36.0-47.0); HEMOGLOBIN 12.6 g/dL (12.0-15.5); LYMPH # 3.2 x10^3/uL (1.0-4.8); LYMPH % 43 % (24-48); MEAN CORPUSCULAR HEMOGLOBIN 28 pg (25-35); MEAN CORPUSCULAR HGB CONC 34 g/dL (31-37); MEAN CORPUSCULAR VOLUME 82 fL (79-100); MONO # 0.5 x10^3/uL (0.0-1.1); MONO % 7 % (0-9); NEUT # 3.6 x10^3uL (1.8-7.7); NEUT % 48 % (31-73); PLATELET COUNT 281 x10^3/uL (140-400); RED BLOOD COUNT 4.55 x10^6/uL (3.50-5.40); RED CELL DISTRIBUTION WIDTH 13.9 % (11.5-14.5); WHITE BLOOD COUNT 7.4 x10^3/uL (4.0-11.0)
[2020-11-14 02:25] LABS: CALCIUM 9.2 mg/dL (8.5-10.1); CREATININE 0.7 mg/dL (0.6-1.0); GFR 106.7
[2020-11-14 02:37] LABS: DIRECT BILIRUBIN 0.1 mg/dL (0.0-0.2); MAGNESIUM 1.8 mg/dL (1.8-2.4); TOTAL BILIRUBIN 0.2 mg/dL (0.2-1.0)
[2020-11-14 02:45] VITALS: BP 137/73
[2020-11-14 03:15] LABS: BACTERIA,URINE FEW /HPF (0-FEW); BILIRUBIN,URINE NEG (NEG); CLARITY,URINE HAZY; COLOR,URINE YELLOW; GLUCOSE,URINE NEG (NEG); NITRITE,URINE NEG (NEG); RBC,URINE 0 /HPF (0-2); SQUAMOUS EPITHELIAL CELL,UR FEW /LPF; UROBILINOGEN,URINE 0.2 mg/dL (0.2 mg/dL)
[2020-11-14 03:25] LABS: BARBITURATES NEG (NEG); BENZODIAZEPINES NEG (NEG); CANNABINOIDS NEG (NEG); COCAINE NEG (NEG); METHADONE NEG (NEG); OPIATES NEG (NEG); PHENCYCLIDINE NEG (NEG)
[2020-11-14 03:28] LABS: AMPHETAMINE/METHAMPHETAMINE NEG (NEG)
--- NOTE | 2020-11-14 04:36 | RAD ---
EXAM: CT ANGIOGRAPHY OF THE CHEST WITH AND WITHOUT CONTRAST. HISTORY: Chest pain, COVID-19. TECHNIQUE: Computed tomographic angiography of the chest was performed before and after the intraveno us administration of contrast. 3-D maximum intensity projections were also performed. One or more of the following individualized dose reduction techniques were utilized for this examination: 1. Automated exposure control. 2. Adjustment of the mA and/or kV according to patient size. 3. Use of iterative reconstruction technique. COMPARISON: None. FINDINGS: Images of the upper abdomen reveal no acute abnormality. Bone windows reveal no suspicious lesions. No pulmonary emboli are identified. There is no aortic dissection or aneurysm. There are no pathologically enlarged mediastinal or axillary lymph nodes. Soft tissue density in the anterior mediastinum is consistent with a thymic remnant. There is no pleural or pericardial effusion . The heart is not enlarged. Lung windows reveal no infiltrates. IMPRESSION: 1. No pulmonary embolism. No infiltrates. Electronically signed by: Harry Reeves MD (11/14/2020 4:34 AM) [facility]
--- NOTE | 2020-11-14 04:37 | RAD ---
EXAM: CHEST 2 VIEWS. HISTORY: Chest pain. COMPARISON: 11/10/2020. FINDINGS: Frontal and lateral views of the chest are obtained. There are no confluent infiltrates. There is no pneumothorax or pleural effusion. The heart is not en larged. Bilateral cervical ribs are noted. IMPRESSION: 1. No confluent infiltrates. Electronically signed by: Harry Reeves MD (11/14/2020 4:35 AM) [facility]
--- NOTE | 2020-11-14 05:03 | EKG ---
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
== END 2020-11-14 05:18 | disposition home or self-care (01) ==
LOC: ER 01:12
DX: R07.89 Other chest pain (principal); B34.9 Viral infection, unspecified; F12.10 Cannabis abuse, uncomplicated; F15.10 Other stimulant abuse, uncomplicated; Z91.19 Patient's noncompliance with other medical treatment and regimen
CPT/HCPCS: 36415; 71046; 71275; 80048; 80076; 80307; 81001; 82550; 83690; 83735; 83880; 84484; 84702; 85025; 87086; 93005; 96360; 99285; J7120; Q9967

== ENCOUNTER 2020-11-26 22:11 | Emergency (ER) | payer OTHER ==
[~2020-11-26] VITALS: Ht 170.2 cm; Wt 112.1 kg
[2020-11-26] MEDS ORDERED: DEXAMETHASONE 4 MG TABLET PO ONE (22:15)
[2020-11-26 22:20] VITALS: BP 146/82
--- NOTE | 2020-11-26 22:27 | RAD ---
Single view chest dated 11/26/2020 10:24 PM: COMPARISON: 11/14/2020 Clinical Indication: Shortness of breath. Findings: Single upright portable exam of the chest was performed. Heart size and mediastinal contours are with in normal limits. Lungs are clear. No consolidation or pleural effusion. No pneumothorax. IMPRESSION: No acute radiographic abnormality. Electronically signed by: Dane Tamayo MD (11/26/2020 10:24 PM) [facility]
[2020-11-26] MEDS ORDERED: LORA0.5T21 PO (22:31)
--- NOTE | 2020-11-26 22:32 | PHYS DOC ---
Past History Past Medical History: Anxiety, Bipolar, Bronchitis, Other Additional Past Medical Histor: cutting Past Surgical History: No Surgical History Smoking: Cigarettes Alcohol Use: None Drug Use: Marijuana, Methamphetamine General Adult EDM: Chief Complaint: SHORTNESS OF BREATH HPI: HPI: Patient is a [age] year old [sex] who presents with [] Review of Systems: Review of Systems: Constitutional: Denies fever or chills Eyes: Denies change in visual acuity HENT: Denies nasal congestion or sore throat Respiratory: Denies cough or shortness of breath Cardiovascular: Denies chest pain or edema GI: Denies abdominal pain, nausea, vomiting, bloody stools or diarrhea : Denies dysuria Musculoskeletal: Denies back pain or joint pain Integument: Denies rash Neurologic: Denies headache, focal weakness or sensory changes Endocrine: Denies polyuria or polydipsia Lymphatic: Denies swollen glands Psychiatric: Denies depression or anxiety Current Medications: Current Meds: Current Medications Medications (Trade) Dose Ordered Sig/Stone Start Time Stop Time Status Last Admin Dose Admin Dexamethasone (Decadron) 10 mg 1X ONCE 11/26/20 22:15 11/26/20 22:16 11/26/20 22:27 10 MG Allergies: Allergies: Allergies Coded Allergies Type Severity Reaction Last Updated Verified No Known Drug Allergies 01/01/17 No Physical Exam: PE: Constitutional: Well developed, well nourished, no acute distress, non-toxic appearance. [] HENT: Normocephalic, atraumatic, bilateral external ears normal, oropharynx moist, no oral exudates, nose normal. [] Eyes: PERRLA, EOMI, conjunctiva normal, no discharge. [] Neck: Normal range of motion, no tenderness, supple, no stridor. [] Cardiovascular:Heart rate regular rhythm, no murmur [] Lungs & Thorax: Bilateral breath sounds clear to auscultation [] Abdomen: Bowel sounds normal, soft, no tenderness, no masses, no pulsatile masses. [] Skin: Warm, dry, no erythema, no rash. [] Back: No tenderness, no CVA tenderness. [] Extremities: No tenderness, no cyanosis, no clubbing, ROM intact, no edema. [] Neurologic: Alert and oriented X 3, normal motor function, normal sensory function, no focal deficits noted. [] Psychologic: Affect normal, judgement normal, mood normal. [] Current Patient Data: Vital Signs: Vital Signs Date Time Temp Pulse Resp B/P (MAP) Pulse Ox O2 Delivery O2 Flow Rate FiO2 11/26/20 22:20 98.5 92 18 146/82 99 Room Air EKG: EKG: [] Radiology/Procedures: Radiology/Procedures: [] Heart Score: Risk Factors: Risk Factors: DM, Current or recent (<one month) smoker, HTN, HLP, family history of CAD, obesity. Risk Scores: Score 0 - 3: 2.5% MACE over next 6 weeks - Discharge Home Score 4 - 6: 20.3% MACE over next 6 weeks - Admit for Clinical Observation Score 7 - 10: 72.7% MACE over next 6 weeks - Early Invasive Strategies Course & Med Decision Making: Course & Med Decision Making Pertinent Labs and Imaging studies reviewed. (See chart for details) [] Dragon Disclaimer: Dragon Disclaimer: This electronic medical record was generated, in whole or in part, using a voice recognition dictation system. Departure Departure: Impression: Primary Impression: Shortness of breath Additional Impression: History of COVID-19 Disposition: HOME / SELF CARE / HOMELESS Condition: STABLE Referrals: WALLACE BROWN MD (PCP) Patient Instructions: Anxiety and Panic Attacks, [id number], Shortness of Breath, [id number] Additional Instructions: You have previously been diagnosed with COVID-19. This is information regarding this condition. Given timing you no longer should be contagious but may still have some lingering symptoms. It is an infection caused by a new type of coronavirus. COVID-19 will cause cold-like or mild flu symptoms in most. It can cause more severe symptoms like problems breathing in some. There is no treatment for COVID-19. The body will clear the infection over time. Self-care will help to ease discomfort. Steps to Take: Self-Care Rest as needed. Healthy habits may help you feel better. Steps include: Choose healthy foods including fruits and vegetables. Drink water throughout the day. Get plenty of sleep each night. If you smoke, try to quit. It may ease breathing. Avoid alcohol. Keep Others Healthy The virus can spread to others. Droplets are released every time you sneeze or cough. The droplets can get into the mouth, nose, or eyes of people near you and lead to infection. To lower the chances of spreading COVID-19 to others: Stay at home until your doctor has said it is safe to leave. If you tested positive this will mean staying isolated until both of the following are true: At least 7 days have passed since the start of illness. You are free of fever for at least 72 hours without the use of medicine. During this time: - Avoid public areas, events, or transportation. Do not return to work or school until your doctor has said it is safe to do so. - Call ahead if you need to go to a medical center. Let them know you may have COVID-19. It will help them guide you where to go. They may also ask you to wear a facemask when you come to the office. - If you call for emergency medical services, let them know you may have COVID- 19. While at home: - Try to avoid close contact with others. Stay about 6 feet away. - If possible, spend most of your time in a separate room from others. - Use a face mask if you will be in close contact with others such as sharing a room or vehicle. - Have someone wipe down common surfaces in the home. Use household supervisor cigarette making department every day on areas like doorknobs, counters, or sinks. - Cough or sneeze into a tissue. Throw the tissue away right after use. If a tissue is not available, cough or sneeze into your elbow. - Wash your hands often. Wash them after sneezing or coughing. Use soap and water and wash for at least 20 seconds. Alcohol based hand turkey cleaner can be used if soap and water is not available. - Do not prepare food for others. Avoid sharing personal items like forks, spoons, or toothbrushes. - Avoid close contact with pets while you are sick. There is no evidence of the virus passing to pets. This is a safety step until more is known about this virus. Isolation can be frustrating. Social interaction can help. Keep in touch with friends and family through phone and tech options. You can still interact with others in your home, just keep a safe distance of about 6 feet. Follow-up: Your doctors office will check in with you to see if there are any changes in your health. You may be asked to keep track of symptoms to share with them. They will also let you know when you are clear to be in public again. Problems to Look Out For: Contact your doctor if your recovery is not going as you expect. Get emergency care if you have problems such as: - Trouble breathing - Nonstop chest pain or pressure - Changes in awareness, confusion, or problems waking - Lips or face have bluish color - Worsening of symptoms If you think you have an emergency, call for emergency medical services right away. As taken from [facility] Lorazepam (ATIVAN ) 0.5 Mg Tablet 0.5 MG PO PRN TID PRN for ANXIETY, #10 TAB Prov: KANG MURDOCK DO 11/26/20 KANG MURDOCK DO Nov 26, 2020 22:32
== END 2020-11-26 22:35 | disposition home or self-care (01) ==
LOC: ER 22:11
DX: R06.02 Shortness of breath (principal); F17.210 Nicotine dependence, cigarettes, uncomplicated; F31.9 Bipolar disorder, unspecified; Z86.16 Personal history of COVID-19
CPT/HCPCS: 71045; 99283; J8540

== ENCOUNTER 2020-11-30 13:38 | Emergency (ER) | payer OTHER ==
[~2020-11-30] VITALS: Ht 170.2 cm; Wt 112.1 kg
[~2020-11-30 13:38] MED LIST changes: +LORA0.5T21 PO
--- NOTE | 2020-11-30 13:47 | PHYS DOC ---
Past History Past Medical History: Anxiety, Bipolar, Bronchitis, Other Additional Past Medical Histor: cutting Past Surgical History: No Surgical History Smoking: Cigarettes Alcohol Use: None Drug Use: Marijuana, Methamphetamine Adult General Chief Complaint Chief Complaint: CHEST PAIN HPI HPI Patient is a 20-year-old female presenting for chest pain. This is acute on chronic issue. She has been here multiple times this past month and received extensive work-up in the past that included labs, imaging and numerous EKGs. Reports she has been more anxious than usual about her health. She has not followed up with her primary care physician as instructed but admits she does have outpatient follow-up December 10. States she just feels like she is going to at times, states that she worries about her health which causes her to feel generalized palpitations with subjective numbness and tingling in all x4 extremities. She has history of smoking meth but admits she does not do this anymore, denies any alcohol abuse but admits ongoing cigarette/tobacco use. No significant family medical history of heart disease. Review of Systems Review of Systems Fourteen body systems of review of systems have been reviewed. See HPI for pertinent positives and negative responses, other singh all other systems are negative, non-pertinent or non-contributory Allergies Allergies Allergies Coded Allergies Type Severity Reaction Last Updated Verified No Known Drug Allergies 01/01/17 No Physical Exam Physical Exam Constitutional: Well developed, well nourished, no acute distress, non-toxic appearance. HENT: Normocephalic, atraumatic, bilateral external ears normal, oropharynx moist, no oral exudates, nose normal. Eyes: PERRLA, EOMI, conjunctiva normal, no discharge. Neck: Normal range of motion, no tenderness, supple, no stridor. Cardiovascular: Heart rate regular, sinus rhythm, no murmurs rubs or gallops Lungs & Thorax: Bilateral breath sounds clear to auscultation Abdomen: Bowel sounds normal, soft, no tenderness, no masses, no pulsatile masses. Nonsurgical abdomen, no peritoneal signs Skin: Warm, dry, no erythema, no rash. Back: No tenderness, no CVA tenderness. Extremities: No tenderness, no cyanosis, no clubbing, ROM intact, no edema. Neurologic: Alert and oriented X 3, grossly normal motor & sensory function, no focal deficits noted. Psychologic: Anxious affect and mood Current Patient Data Vital Signs Vital Signs Date Time Temp Pulse Resp B/P (MAP) Pulse Ox O2 Delivery O2 Flow Rate FiO2 11/30/20 13:50 98.1 97 16 132/56 100 Room Air Vital Signs Date Time Temp Pulse Resp B/P (MAP) Pulse Ox O2 Delivery O2 Flow Rate FiO2 11/30/20 13:50 98.1 97 16 132/56 100 Room Air EKG EKG EKG ordered and interpreted by myself at 1350 hrs. as sinus rhythm at 91 bpm, unremarkable intervals, no axis deviation, no acute ischemic findings, no STEMI Radiology/Procedures Radiology/Procedures [] Heart Score C/O Chest Pain: Yes HEART Score for Chest Pain: HEART Score for Chest Pain Response (Comments) Value History Slighlty/Non-Suspicious 0 ECG Normal 0 Age < 45 0 Risk Factors 1 or 2 Risk Factors 1 Total 1 Risk Factors: Risk Factors: DM, Current or recent (<one month) smoker, HTN, HLP, family history of CAD, obesity. Risk Scores: Risk Factors: DM, Current or recent (<one month) smoker, HTN, HLP, family history of CAD, obesity. Course & Med Decision Making Course & Med Decision Making Vitals stable. HPI and physical exam nonconcerning for any emergent or surgical issues. EKG nonconcerning I reviewed patient case with patient. I reviewed multiple recent visits and extensive work-up that has been performed that is all been grossly negative. I disclosed patient is low risk for ACS, that patient's symptoms more accurately reflect anxiety/panic attacks I did offer to repeat certain aspects of ER work-up to better rule out ACS or other concerning diagnoses such as pulmonary embolism but after reviewing previous heart score and PERC score etc., patient agreed it is likely anxiety and agreeable for discharge Strict return precautions were discussed with good understanding by patient, all questions and concerns addressed prior to your departure Dragon Disclaimer Dragon Disclaimer This electronic medical record was generated, in whole or in part, using a voice recognition dictation system. Departure Departure: Impression: Primary Impression: Chest pain, unspecified Additional Impression: Anxiety about health Disposition: HOME / SELF CARE / HOMELESS Condition: STABLE Referrals: WALLACE BROWN MD (PCP) Patient Instructions: Anxiety and Panic Attacks, Chest Pain (Nonspecific) Additional Instructions: You were seen for chronic chest pain and anxiety about health. Your workup did not show any acute abnormalities today, but does not indicate that you do not have underlying cardiovascular disease. You do need to follow up with your primary doctor and potentially a shipping and receiving specialist for further evaluation and treatment. You should return to the ED if you develop worsening chest pain, shortness of breath, fever, abnormal sweating, leg swelling, or any other new or concerning symptoms. Problem Qualifiers LEON GARNER DO Nov 30, 2020 13:47
[2020-11-30] MEDS ORDERED: hydrOXYzine HCL 25 MG TABLET PO PRN (14:15)
--- NOTE | 2020-11-30 14:29 | EKG ---
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
[2020-11-30 14:40] VITALS: BP 129/72
== END 2020-11-30 15:06 | disposition home or self-care (01) ==
LOC: ER 13:38
DX: R07.89 Other chest pain (principal); F41.9 Anxiety disorder, unspecified; F17.210 Nicotine dependence, cigarettes, uncomplicated; F15.10 Other stimulant abuse, uncomplicated
CPT/HCPCS: 93005; 99283

== ENCOUNTER 2021-01-29 12:19 | Emergency (ER) | payer OTHER ==
[~2021-01-29] VITALS: Ht 170.2 cm; Wt 107.0 kg
[2021-01-29] MEDS ORDERED: IBUPROFEN 600 MG TABLET. PO ONE (12:45)
[2021-01-29] MEDS ORDERED: ACET325T9 PO (13:45)
[2021-01-29] MEDS ORDERED: IBUP200T44 PO (13:45)
[2021-01-29] MEDS ORDERED: PENI500T PO (13:45)
[2021-01-29] MEDS ORDERED: DEXAMETHASONE SOD PHOS 10 MG/ML VIAL. PO ONE (13:45)
--- NOTE | 2021-01-29 13:46 | PHYS DOC ---
Past History Past Medical History: Anxiety, Bipolar, Bronchitis, Other Additional Past Medical Histor: self- cutting (SHAR ARANGO APRN) Past Surgical History: No Surgical History (SHAR ARANGO APRN) Smoking: Cigarettes Alcohol Use: None Drug Use: Marijuana, Methamphetamine (SHAR ARANGO APRN) General Adult EDM: Chief Complaint: SORE THROAT HPI: HPI: Patient is a 20-year-old female presents with sore throat and fever, bilateral ear pain. Denies cough, shortness of breath. Afebrile on arrival. Reports ta aubree Motrin this morning for fever. States highest temp at home was 101. Denies history. (SHAR ARANGO APRN) Review of Systems: Review of Systems: ROS At least 10 ROS systems have been reviewed and are negative except as documented in the HPI. General: Negative except as outlined in HPI above. Skin: Negative except as outlined in HPI above. HEENT: Negative except as outlined in HPI above. Neck: Negative except as outlined in HPI above. Respiratory: Negative except as outlined in HPI above.. Cardiovascular: Negative except as outlined in HPI above. Abdomen: Negative except as outlined in HPI above. : Negative except as outlined in HPI above. Back/MSK: Negative except as outlined in HPI above. Neuro: Negative except as outlined in HPI above. Psych: Negative except as outlined in HPI above. (SHAR ARANGO APRN) Current Medications: Current Meds: Current Medications Medications (Trade) Dose Ordered Sig/Stone Start Time Stop Time Status Last Admin Dose Admin Ibuprofen (Motrin) 600 mg 1X ONCE 01/29/21 12:45 01/29/21 13:05 DC 01/29/21 13:18 600 MG (SHAR ARANGO APRN) Allergies: Allergies: Allergies Coded Allergies Type Severity Reaction Last Updated Verified No Known Drug Allergies 01/29/21 No (SHAR ARANGO APRN) Physical Exam: PE: Constitutional: Well developed, well nourished, no acute distress, non-toxic appearance. [] HENT: Normocephalic, atraumatic, bilateral external ears normal, TM bulging, oropharynx moist, oral exudates, pharynx red Eyes: PERRLA, EOMI, conjunctiva normal, no discharge. [] Neck: Normal range of motion, no tenderness, supple, no stridor. [] Cardiovascular:Heart rate regular rhythm, no murmur [] Lungs & Thorax: Bilateral breath sounds clear to auscultation [] Abdomen: Bowel sounds normal, soft, no tenderness, no masses, no pulsatile masses. [] Skin: Warm, dry, no erythema, no rash. [] Back: No tenderness, no CVA tenderness. [] Extremities: No tenderness, no cyanosis, no clubbing, ROM intact, no edema. [] Neurologic: Alert and oriented X 3, normal motor function, normal sensory function, no focal deficits noted. [] Psychologic: Affect normal, judgement normal, mood normal. [] (SHAR ARANGO APRN) Current Patient Data: Vital Signs: Vital Signs Date Time Temp Pulse Resp B/P (MAP) Pulse Ox O2 Delivery O2 Flow Rate FiO2 01/29/21 12:25 99.4 120 20 125/70 (88) 97 (SHAR ARANGO APRN) EKG: EKG: [] (SHAR ARANGO APRN) Radiology/Procedures: Radiology/Procedures: [] (SHAR ARANGO APRN) Heart Score: C/O Chest Pain: No Risk Factors: Risk Factors: DM, Current or recent (<one month) smoker, HTN, HLP, family history of CAD, obesity. Risk Scores: Score 0 - 3: 2.5% MACE over next 6 weeks - Discharge Home Score 4 - 6: 20.3% MACE over next 6 weeks - Admit for Clinical Observation Score 7 - 10: 72.7% MACE over next 6 weeks - Early Invasive Strategies (SHAR ARANGO APRN) Course & Med Decision Making: Course & Med Decision Making Pertinent Labs and Imaging studies reviewed. (See chart for details) [] 21 female presents with sore throat, fever, or ear pain. Oral exudates seen on physical exam, bulging TM and otorrhea. Afebrile. Patient given Motrin. Rapid strep was negative. Treating patient for pharyngitis and AOM. Advised patient to alternate between Motrin and Tylenol. Recommended patient follow-up with PCP in 2 to 3 days if symptoms are not improving. Discussed return precautions. (SHAR ARANGO APRN) Course & Med Decision Making I was the Attending physician on the above date of service of this patient. This patient was evaluated, examined, treated, and dispositioned from the emergency department by the mid-level practitioner. Although I was working at the time , no assistance was requested. Electronically signed, Leon Garner DO (LEON GARNER DO) Keturah Disclaimer: Keturah Disclaimer: This electronic medical record was generated, in whole or in part, using a voice recognition dictation system. (CONCHITASHARIZZY SALAZAR) Departure Departure: Impression: Primary Impression: Sore throat (viral) Additional Impressions: Ear pain Qualified Codes: H92.03 - Otalgia, bilateral Fever Qualified Codes: R50.9 - Fever, unspecified Disposition: HOME / SELF CARE / HOMELESS Condition: STABLE Referrals: WALLACE BROWN MD (PCP) Patient Instructions: Otitis Media, Adult, Viral Pharyngitis Additional Instructions: You are seen in the emergency room for bilateral ear pain and sore throat. Your rapid strep was negative. I am treating you for otitis media. I sent an antibiotic to [facility]. Gargle with warm salt water. Motrin Tylenol for fever and pain. If symptoms not improve please follow-up with your PCP in the next 2 to 3 days. Return to emergency room with worsening symptoms or concerns EMERGENCY DEPARTMENT GENERAL DISCHARGE INSTRUCTIONS Thank you for coming to [facility] (ED) today and trusting us with you care. We trust that you had a positivie experience in our Emergency Department. If you wish to speak to the department management, you may call the director at [phone]. YOUR FOLLOW UP INSTRUCTIONS ARE FOLLOWS: 1. Do you have a private Doctor? If you do not have a private doctor, please ask for a resource list of physicians or clinics that may be able to assist you with follow up care. 2. The Emergency Physician has interpreted your x-rays. The X-Ray specialist will also review them. If there is a change in the findings, you will be notified in 48 hours when at all possible. 3. A lab test or culture has been done, your results will be reviewed and you will be notified if you need a change in treatment. ADDITIONAL INSTRUCTIONS AND INFORMATION: 1. Your care today has been supervised by a physician who is specially trained in emergency care. Many problems require more than one evaluation for a complete diagnosis and treatment. We recommend that you schedule your follow up appointment as recommended to ensure complete treatment of you illness or injury. If you are unable to obtain follow up care and continue to have a problem, or if your condition worsens, we recommend that you return to the ED. 2. We are not able to safely determine your condition over the phone nor are we able to give sound medical advice over the phone. For these safety reasons, if you call for medical advice we will ask you to come to the ED for further evaluation. 3. If you have any questions regarding these discharge instructions please call the ED at [phone]. SAFETY INFORMATION: In the interest of safety, wellness, and injury prevention; we encourage you to wear your sealbelt, if you smoke; quite smoking, and we encourage family to use a protective helmet for bicycling and other sporting events that present an increased risk for head injury. IF YOUR SYMPTOMS WORSEN OR NEW SYMPTOMS DEVELOP, OR YOU HAVE CONCERNS ABOUT YOUR CONDITION; OR IF YOUR CONDITION WORSENS WHILE YOU ARE WAITING FOR YOUR FOLLOW UP APPOINTMENT; EITHER CONTACT YOUR PRIMARY CARE DOCTOR, THE PHYSICIAN WHOSE NAME AND NUMBER YOU WERE GIVEN, OR RETURN TO THE ED IMMEDIATELY. Scripts Acetaminophen (TYLENOL) 325 Mg Tablet 1 TAB PO PRN Q4HRS for fever for 7 Days, #30 TAB Prov: SHAR ARANGO APRN 01/29/21 Ibuprofen (MOTRIN IB) 200 Mg Tablet 200 MG PO Q6-8HRS PRN for PAIN for 7 Days, #30 TAB Prov: SHAR ARANGO APRN 01/29/21 Penicillin V Potassium (PENICILLIN V POTASSIUM) 500 Mg Tablet 1 TAB PO BID for aom for 10 Days, #20 TAB Prov: SHAR ARANGO APRN 01/29/21 SHAR ARANGO APRN Jan 29, 2021 13:46 LEON GARNER DO Feb 02, 2021 11:53
[2021-01-29 14:15] VITALS: BP 128/70
== END 2021-01-29 14:20 | disposition home or self-care (01) ==
LOC: ER 12:19
DX: J02.8 Acute pharyngitis due to other specified organisms (principal); H92.02 Otalgia, left ear; F41.9 Anxiety disorder, unspecified; F31.9 Bipolar disorder, unspecified; F17.210 Nicotine dependence, cigarettes, uncomplicated; Z20.822 Contact with and (suspected) exposure to COVID-19
CPT/HCPCS: 87070; 87880; 99283; C9803; J1100; U0003

== ENCOUNTER 2021-02-11 17:30 | Emergency (ER) | payer OTHER ==
[~2021-02-11] VITALS: Ht 170.2 cm; Wt 108.4 kg
[~2021-02-11 17:30] MED LIST changes: +ACET325T9 PO; +DICY20TA PO; -DICY20TA3 PO; +IBUP200T44 PO; +PENI500T PO
[2021-02-11] MEDS ORDERED: LIDO:MAALOX 1:1 20 ML SINGLE DOSE. PO ONE (18:30)
[2021-02-11 18:58] LABS: BASO # 0.1 x10^3/uL (0.0-0.2); BASO % 1 % (0-3); EOS % 0 % (0-3); HEMATOCRIT 41.2 % (36.0-47.0); HEMOGLOBIN 13.8 g/dL (12.0-15.5); LYMPH # 2.9 x10^3/uL (1.0-4.8); LYMPH % 30 % (24-48); MEAN CORPUSCULAR HEMOGLOBIN 28 pg (25-35); MEAN CORPUSCULAR HGB CONC 34 g/dL (31-37); MEAN CORPUSCULAR VOLUME 84 fL (79-100); MONO # 0.5 x10^3/uL (0.0-1.1); MONO % 5 % (0-9); NEUT # 6.3 x10^3uL (1.8-7.7); NEUT % 65 % (31-73); PLATELET COUNT 311 x10^3/uL (140-400); RED CELL DISTRIBUTION WIDTH 13.9 % (11.5-14.5); WHITE BLOOD COUNT 9.8 x10^3/uL (4.0-11.0)
[2021-02-11 19:14] LABS: CALCIUM 9.5 mg/dL (8.5-10.1); CREATININE 0.8 mg/dL (0.6-1.0); GFR 91.4
--- NOTE | 2021-02-11 19:15 | PHYS DOC ---
Past History Past Medical History: Anxiety, Bipolar, Bronchitis, Other Additional Past Medical Histor: self- cutting (DICK SULTANA) Past Surgical History: No Surgical History (DICK SULTANA) Smoking: Cigarettes Alcohol Use: Rarely Drug Use: Marijuana, Methamphetamine Social History Narrative: last smoked a week ago (DICK SULTANA) General Adult EDM: Chief Complaint: ABDOMINAL PAIN HPI: HPI: Patient is a 20 year old female who presents with epigastric abdominal pain. P david states that her pain has been intermittent for the past 2 years, with her current symptoms starting this morning. She describes the pain as a dull ache that is reproducible on touch. She denies any radiation of her pain. Patient was seen at her PCPs office this morning. Her pain was not as intense at this time, and her PCP advised that she wait until her scheduled CT and ultrasound next week. Patient has not tried any medication to alleviate her symptoms today. Patient reports history of GERD in the past, but no longer takes antacids. She was recently on penicillin for tonsil stones. Patient does report anxiety today regarding the etiology of her pain. Patient has had GI cocktails in the past, which have helped. Patient denies fever, chills, nausea, vomiting, diarrhea, constipation, chest pain, palpitations, shortness of breath, cough. (DICK SULTANA) Review of Systems: Review of Systems: 12 systems reviewed. ROS negative except as mentioned in HPI. (DICK SULTANA) Current Medications: Current Meds: Current Medications Medications (Trade) Dose Ordered Sig/Stone Start Time Stop Time Status Last Admin Dose Admin Multi-Ingredient Mouthwash/Gargle (Gi Cocktail) 20 ml 1X ONCE 02/11/21 18:30 02/11/21 18:41 DC 02/11/21 18:41 20 ML (DICK SULTANA) Allergies: Allergies: Allergies Coded Allergies Type Severity Reaction Last Updated Verified No Known Drug Allergies 01/29/21 No (DICK SULTANA) Physical Exam: PE: Constitutional: Well developed, well nourished, no acute distress, non-toxic appearance. Cardiovascular: Heart rate regular rhythm, no murmur. Lungs & Thorax: Bilateral breath sounds clear to auscultation. Abdomen: Bowel sounds normal, soft, no tenderness, no masses, no pulsatile masses. Skin: Warm, dry, no erythema, no rash. Back: No tenderness, no CVA tenderness. Extremities: No tenderness, no cyanosis, no clubbing, ROM intact, no edema. (DICK SULTANA) Current Patient Data: Labs: Laboratory Tests Test 02/11/21 18:40 White Blood Count 9.8 x10^3/uL (4.0-11.0) Red Blood Count 4.90 x10^6/uL (3.50-5.40) Hemoglobin 13.8 g/dL (12.0-15.5) Hematocrit 41.2 % (36.0-47.0) Mean Corpuscular Volume 84 fL (79-100) Mean Corpuscular Hemoglobin 28 pg (25-35) Mean Corpuscular Hemoglobin Concent 34 g/dL (31-37) Red Cell Distribution Width 13.9 % (11.5-14.5) Platelet Count 311 x10^3/uL (140-400) Neutrophils (%) (Auto) 65 % (31-73) Lymphocytes (%) (Auto) 30 % (24-48) Monocytes (%) (Auto) 5 % (0-9) Eosinophils (%) (Auto) 0 % (0-3) Basophils (%) (Auto) 1 % (0-3) Neutrophils # (Auto) 6.3 x10^3uL (1.8-7.7) Lymphocytes # (Auto) 2.9 x10^3/uL (1.0-4.8) Monocytes # (Auto) 0.5 x10^3/uL (0.0-1.1) Eosinophils # (Auto) 0.0 x10^3/uL (0.0-0.7) Basophils # (Auto) 0.1 x10^3/uL (0.0-0.2) Sodium Level 136 mmol/L (136-145) Potassium Level 4.0 mmol/L (3.5-5.1) Chloride Level 104 mmol/L (98-107) Carbon Dioxide Level 23 mmol/L (21-32) Anion Gap 9 (6-14) Blood Urea Nitrogen 8 mg/dL (7-20) Creatinine 0.8 mg/dL (0.6-1.0) Estimated GFR (Cockcroft-Gault) 91.4 BUN/Creatinine Ratio 10 (6-20) Glucose Level 98 mg/dL (70-99) Calcium Level 9.5 mg/dL (8.5-10.1) Total Bilirubin 0.3 mg/dL (0.2-1.0) Aspartate Amino Transf (AST/SGOT) 17 U/L (15-37) Alanine Aminotransferase (ALT/SGPT) 44 U/L (14-59) Alkaline Phosphatase 56 U/L (46-116) Total Protein 7.5 g/dL (6.4-8.2) Albumin 4.0 g/dL (3.4-5.0) Albumin/Globulin Ratio 1.1 (1.0-1.7) Lipase 49 U/L (73-393) Vital Signs: Vital Signs Date Time Temp Pulse Resp B/P (MAP) Pulse Ox O2 Delivery O2 Flow Rate FiO2 02/11/21 17:41 98.8 92 18 149/73 (98) 98 Room Air (DICK SULTANA) Heart Score: C/O Chest Pain: No (DICK SULTANA) Course & Med Decision Making: Course & Med Decision Making Pertinent Labs and Imaging studies reviewed. (See chart for details) Patient presents today with an acute exacerbation of chronic symptoms. She has already seen her primary care provider today, who has imaging scheduled for her next week. Patient will be treated to alleviate her epigastric discomfort. Otherwise, she is advised to keep her appointment with her primary care provider next week. Patient understands and is agreeable to discharge plan. (DICK SULTANA) Dragon Disclaimer: Dragon Disclaimer: This electronic medical record was generated, in whole or in part, using a voice recognition dictation system. (DICK SULTANA) Departure Departure: Impression: Primary Impression: Gastritis Qualified Codes: K29.50 - Unspecified chronic gastritis without bleeding Additional Impression: Anxiety about health Disposition: 01 HOME / SELF CARE / HOMELESS Condition: STABLE Referrals: WALLACE BROWN MD (PCP) Patient Instructions: Diet for Gastroesophageal Reflux Disease, Adult, [id number], Gastritis, Adult, [id number] Additional Instructions: Your work-up today did not give any indication for CT imaging prior to your scheduled appointment next week. I encourage you to keep that appointment and to follow all instruction from your primary care doctor. Please return to the emergency department if you have worsening symptoms or develop new symptoms. Scripts Omeprazole (OMEPRAZOLE) 20 Mg Capsule.dr 1 CAP PO DAILY for gastritis, #30 CAP 0 Refills Prov: DICK SULTANA 02/11/21 Attending Signature Attending Signature I have reviewed the PA/POURED [employer]ALL FOREMAN's note and plan of care. I was available for consultation as needed during the patient's visit in the emergency department. I agree with the clinical impression, plan, and disposition. (KANG MURDOCK DO) DICK SULTANA Feb 11, 2021 19:15 KANG MURDOCK DO Feb 11, 2021 23:23
[2021-02-11 19:20] LABS: ALBUMIN/GLOBULIN RATIO 1.1 (1.0-1.7); TOTAL BILIRUBIN 0.3 mg/dL (0.2-1.0); TOTAL PROTEIN 7.5 g/dL (6.4-8.2)
[2021-02-11] MEDS ORDERED: OMEP20CA16 PO (19:41)
[2021-02-11 19:50] VITALS: BP 126/66
== END 2021-02-11 19:50 | disposition home or self-care (01) ==
LOC: ER 17:30
DX: K29.70 Gastritis, unspecified, without bleeding (principal); F41.9 Anxiety disorder, unspecified; F17.210 Nicotine dependence, cigarettes, uncomplicated; F12.10 Cannabis abuse, uncomplicated; F15.10 Other stimulant abuse, uncomplicated
CPT/HCPCS: 36415; 80053; 83690; 85025; 99283-25

== ENCOUNTER 2021-03-16 15:43 | Emergency (ER) | payer OTHER ==
[~2021-03-16] VITALS: Ht 170.2 cm; Wt 107.6 kg
[~2021-03-16 15:43] MED LIST changes: +OMEP20CA16 PO
--- NOTE | 2021-03-16 16:14 | PHYS DOC ---
Past History Past Medical History: Anxiety, Bipolar, Bronchitis, Other Additional Past Medical Histor: self- cutting (JANET SANDERS APRN) Past Surgical History: No Surgical History (JANET SANDERS APRN) Smoking: Cigarettes Alcohol Use: None Drug Use: Marijuana, Methamphetamine (JANET SANDERS APRN) General Adult EDM: Chief Complaint: ABDOMINAL PAIN HPI: HPI: Patient is a 20-year-old female who presents to the emergency department for suprapubic pain that she describes as a cramping pain. She rates it 7 out of 10. No treatment prior to arrival. The pain is intermittent. She is also reporting dysuria and urinary frequency/urgency. She reports that she was seen by her primary care provider for the same things and had a CT scan performed of her abdomen and pelvis 1-1/2 weeks ago and they told her that there was something growing on her ovary. Patient is a poor historian and cannot elaborate. Her last menstrual period was February 18, 2021. She denies any nausea, vomiting,fevers, diarrhea, blood in her stools, hematuria, vaginal bleeding. (JANET SANDERS APRN) Review of Systems: Review of Systems: Constitutional: See HPI GI: See HPI : See HPI (JANET SANDERS APRN) Allergies: Allergies: Allergies Coded Allergies Type Severity Reaction Last Updated Verified No Known Drug Allergies 01/29/21 No (JANET SANDERS APRN) Physical Exam: PE: Constitutional: Well developed, well nourished, no acute distress, non-toxic appearance. [] HENT: Normocephalic, atraumatic, bilateral external ears normal, oropharynx moist, no oral exudates, nose normal. [] Eyes: PERRL, EOMI, conjunctiva normal, no discharge. [] Neck: Normal range of motion, no stridor Cardiovascular:Heart rate regular rhythm, no murmur [] Lungs & Thorax: Bilateral breath sounds clear to auscultation [] Abdomen: Bowel sounds normal, soft, no tenderness, no guarding, no rigidity, no rebound tenderness, negative murphys sign, negative rovsings sign, no masses, no pulsatile masses. [] Skin: Warm, dry, no erythema, no rash. [] Back: Normal ROM Extremities: No tenderness, no cyanosis, no clubbing, ROM intact, no edema. [] Neurologic: Alert and oriented X 3, normal motor function, normal sensory function, no focal deficits noted. [] Psychologic: Affect normal, judgement normal, mood normal. [] (JANET SANDERS APRN) Current Patient Data: Labs: Laboratory Tests Test 03/16/21 16:20 03/16/21 16:25 White Blood Count 6.1 x10^3/uL Red Blood Count 4.78 x10^6/uL Hemoglobin 13.5 g/dL Hematocrit 40.7 % Mean Corpuscular Volume 85 fL Mean Corpuscular Hemoglobin 28 pg Mean Corpuscular Hemoglobin Concent 33 g/dL Red Cell Distribution Width 13.4 % Platelet Count 269 x10^3/uL Neutrophils (%) (Auto) 59 % Lymphocytes (%) (Auto) 25 % Monocytes (%) (Auto) 13 % Eosinophils (%) (Auto) 2 % Basophils (%) (Auto) 1 % Neutrophils # (Auto) 3.6 x10^3uL Lymphocytes # (Auto) 1.5 x10^3/uL Monocytes # (Auto) 0.8 x10^3/uL Eosinophils # (Auto) 0.1 x10^3/uL Basophils # (Auto) 0.1 x10^3/uL Urine Collection Type Clean catch Urine Color Yellow Urine Clarity Clear Urine pH 7.0 Urine Specific [place] 1.020 Urine Protein Neg Urine Glucose (UA) Neg mg/dL Urine Ketones (Stick) Neg mg/dL Urine Blood Neg Urine Nitrite Neg Urine Bilirubin Neg Urine Urobilinogen Dipstick 0.2 mg/dL Urine Leukocyte Esterase Neg Urine RBC 0 /HPF Urine WBC 0 /HPF Urine Squamous Epithelial Cells Few /LPF Urine Bacteria 0 /HPF Sodium Level 139 mmol/L Potassium Level 4.3 mmol/L Chloride Level 105 mmol/L Carbon Dioxide Level 23 mmol/L Anion Gap 11 Blood Urea Nitrogen 11 mg/dL Creatinine 0.9 mg/dL Estimated GFR (Cockcroft-Gault) 79.8 BUN/Creatinine Ratio 12 Glucose Level 116 mg/dL Calcium Level 8.7 mg/dL Total Bilirubin 0.2 mg/dL Aspartate Amino Transf (AST/SGOT) 14 U/L Alanine Aminotransferase (ALT/SGPT) 37 U/L Alkaline Phosphatase 55 U/L Total Protein 7.1 g/dL Albumin 3.6 g/dL Albumin/Globulin Ratio 1.0 Lipase 58 U/L Bedside Urine HCG, Qualitative hcg negative Vital Signs: Vital Signs Date Time Temp Pulse Resp B/P (MAP) Pulse Ox O2 Delivery O2 Flow Rate FiO2 03/16/21 16:03 98.9 96 18 147/80 (102) 97 Room Air (JANET SANDERS APRN) EKG: EKG: [] (JANET SANDERS APRN) Radiology/Procedures: Radiology/Procedures: []PROCEDURE: US PELVIS W/TV EXAM: ULTRASOUND PELVIS INDICATION: Suprapubic pain. COMPARISON: 06/22/2018 TECHNIQUE: Transabdominal and transvaginal sonography was performed. FINDINGS: The uterus measures 9.2 x 5.3 x 4.2 cm. Endometrial thickness of 1.2 cm. The right ovary measures 4.2 x 3.1 x 2.6 cm and the left ovary 4.3 x 2.7 x 4.6 cm. Unremarkable uterine parenchyma. No abnormal vascularity along the endometrium. There appears to be a small amount of heterogeneous avascular fluid within the e ndometrial canal. Right ovarian cystic focus measuring 2.6 x 2.3 x 2.3 cm which is complex with internal debris but no mural nodularity or abnormal internal vascularity. Several follicles on both the right and left. Doppler flow is maintained to both ovaries. Small volume free pelvic fluid which is relatively simple. IMPRESSION: 1. Thickened endometrium measured up to 1.2 cm with probable trace fluid/hemorrhage along the endometrial canal. Considering patient age this is favored physiologic. No endometrial mass is identified or abnormal vascularity. 2. Complex right ovarian cyst measuring up to 2.6 cm favored a hemorrhagic cyst. The appearance is not diagnostic of an endometrioma. Follow-up ultrasound could be performed to confirm expected evolutionary changes of a hemorrhagic cyst if deemed necessary. 3. Normal Doppler flow to both ovaries. Several follicles. 3. Small volume, simple-appearing free pelvic fluid not uncommon for patient age. Electronically signed by: ASTRID LEIVA MD (03/16/2021 5:35 PM) [facility] DICTATED AND SIGNED BY: ASTRID LEIVA MD DATE: 03/16/21 [id number] CC: JANET SANDERS APRN; WALLACE BROWN MD ~MTH0 0 (JANET SANDERS APRN) Heart Score: C/O Chest Pain: N/A Risk Factors: Risk Factors: DM, Current or recent (<one month) smoker, HTN, HLP, family hi story of CAD, obesity. Risk Scores: Score 0 - 3: 2.5% MACE over next 6 weeks - Discharge Home Score 4 - 6: 20.3% MACE over next 6 weeks - Admit for Clinical Observation Score 7 - 10: 72.7% MACE over next 6 weeks - Early Invasive Strategies (JANET SANDERS APRN) Course & Med Decision Making: Course & Med Decision Making Pertinent Labs and Imaging studies reviewed. (See chart for details) Patient presents to the emergency department for suprapubic pain, dysuria, urinary frequency and urgency. Patient reports that she had a CT scan performed by her primary care provider's office 1/2 weeks ago they told her that she has something growing on her ovary. Work-up in the ER consisted of blood work, urinalysis and ultrasound of pelvis. Patient's blood work is unremarkable. Her hCG was negative. Urinalysis showed no acute findings. Ultrasound shows right ovarian cyst measuring 2.6 cm, normal flow to bilateral ovaries and physiological changes noted. Patient advised to take anti-inflammatory medications and follow-up with her doctor. I discussed with patient all fin dings and diagnostic testing as well as the need to follow-up with PCP for further evaluation and treatment or return to the ER if any new or worsening symptoms. Strict return precautions were also discussed at length. Patient voiced understanding and agreement with the plan. Patient is hemodynamically stable at the time of disposition. (JANET SANDERS APRN) Dragon Disclaimer: Dragon Disclaimer: This electronic medical record was generated, in whole or in part, using a voice recognition dictation system. (JANET SANDERS APRN) Departure Departure: Impression: Primary Impression: Ovarian cyst Qualified Codes: N83.201 - Unspecified ovarian cyst, right side Disposition: HOME / SELF CARE / HOMELESS Condition: GOOD Referrals: WALLACE BROWN MD (PCP) Patient Instructions: Ovarian Cyst Additional Instructions: You were seen in the emergency department today for dysuria, urinary frequency and suprapubic pain. Your blood work was unremarkable, urinary urinalysis did not show an infection. Your test was negative. The ultrasound did show a 2.6 cm cyst on your right ovary. Please follow-up with your primary care provider regarding this finding, I would advise you to make an appointment tomorrow to follow-up. You can take anti-inflammatory medications for your pain. Please return to the emergency department if you have worsening of your pain, blood in your stools or vomit, intractable nausea or vomiting, high fevers refractory to treatment, severe vaginal bleeding or any new or worsening concerns. Attending Signature Attending Signature I have participated in the care of this patient and I have reviewed and agree with all pertinent clinical information above including history, exam, and recommendations. (RADHA LOPEZ MD) JANET SANDERS APRN Mar 16, 2021 16:14 RADHA LOPEZ MD Mar 17, 2021 08:42
[2021-03-16 16:59] LABS: BASO # 0.1 x10^3/uL (0.0-0.2); BASO % 1 % (0-3); EOS # 0.1 x10^3/uL (0.0-0.7); EOS % 2 % (0-3); HEMATOCRIT 40.7 % (36.0-47.0); HEMOGLOBIN 13.5 g/dL (12.0-15.5); LYMPH # 1.5 x10^3/uL (1.0-4.8); LYMPH % 25 % (24-48); MEAN CORPUSCULAR HEMOGLOBIN 28 pg (25-35); MEAN CORPUSCULAR HGB CONC 33 g/dL (31-37); MEAN CORPUSCULAR VOLUME 85 fL (79-100); MONO # 0.8 x10^3/uL (0.0-1.1); MONO % 13 % (0-9); NEUT # 3.6 x10^3uL (1.8-7.7); NEUT % 59 % (31-73); PLATELET COUNT 269 x10^3/uL (140-400); RED BLOOD COUNT 4.78 x10^6/uL (3.50-5.40); RED CELL DISTRIBUTION WIDTH 13.4 % (11.5-14.5); WHITE BLOOD COUNT 6.1 x10^3/uL (4.0-11.0)
[2021-03-16 17:00] LABS: CALCIUM 8.7 mg/dL (8.5-10.1); CREATININE 0.9 mg/dL (0.6-1.0); GFR 79.8; POTASSIUM 4.3 mmol/L (3.5-5.1)
[2021-03-16 17:06] LABS: ALBUMIN 3.6 g/dL (3.4-5.0); TOTAL BILIRUBIN 0.2 mg/dL (0.2-1.0); TOTAL PROTEIN 7.1 g/dL (6.4-8.2)
--- NOTE | 2021-03-16 17:37 | RAD ---
EXAM: ULTRASOUND PELVIS INDICATION: Suprapubic pain. COMPARISON: 06/22/2018 TECHNIQUE: Transabdominal and transvaginal sonography was performed. FINDINGS: The uterus measures 9.2 x 5.3 x 4.2 cm. Endometrial thickness of 1.2 cm. The right ovary measures 4.2 x 3.1 x 2.6 cm and the left ovary 4.3 x 2.7 x 4.6 cm. Unremarkable uterine parenchyma. No abnormal vascularity along the endometrium. There appears to be a small amount of heterogeneous avascular fluid within the endometrial canal. Right ovarian cystic focus measuring 2.6 x 2.3 x 2.3 cm which is complex with internal debris but no mural nodularity or abnormal internal vascularity. Several follicles on both the right and left. Dopp ler flow is maintained to both ovaries. Small volume free pelvic fluid which is relatively simple. IMPRESSION: 1. Thickened endometrium measured up to 1.2 cm with probable trace fluid/hemorrhage along the endomet rial canal. Considering patient age this is favored physiologic. No endometrial mass is identified or abnormal vascularity. 2. Complex right ovarian cyst measuring up to 2.6 cm favored a hemorrhagic cyst. The appearance is no t diagnostic of an endometrioma. Follow-up ultrasound could be performed to confirm expected evolutio nary changes of a hemorrhagic cyst if deemed necessary. 3. Normal Doppler flow to both ovaries. Several follicles. 3. Small volume, simple-appearing free pelvic fluid not uncommon for patient age. Electronically signed by: ASTRID LEIVA MD (03/16/2021 5:35 PM) [facility]
[2021-03-16 18:21] LABS: BACTERIA,URINE 0 /HPF (0-FEW); BILIRUBIN,URINE NEG (NEG); CLARITY,URINE CLEAR; COLOR,URINE YELLOW; GLUCOSE,URINE NEG (NEG); NITRITE,URINE NEG (NEG); RBC,URINE 0 /HPF (0-2); UROBILINOGEN,URINE 0.2 mg/dL (0.2 mg/dL); WBC,URINE 0 /HPF (0-4)
[2021-03-16 18:22] LABS: SQUAMOUS EPITHELIAL CELL,UR FEW /LPF
[2021-03-16 18:46] VITALS: BP 106/62
== END 2021-03-16 18:47 | disposition home or self-care (01) ==
LOC: ER 15:43
DX: N83.201 Unspecified ovarian cyst, right side (principal); F41.9 Anxiety disorder, unspecified; F31.9 Bipolar disorder, unspecified; F17.210 Nicotine dependence, cigarettes, uncomplicated
CPT/HCPCS: 36415; 76830; 76856; 80053; 81001; 81025; 83690; 85025; 99284

== ENCOUNTER 2021-04-05 12:46 | Emergency (ER) | payer OTHER ==
[~2021-04-05] VITALS: Ht 170.2 cm; Wt 105.4 kg
[2021-04-05 13:46] LABS: BACTERIA,URINE MOD /HPF (0-FEW); BILIRUBIN,URINE NEG (NEG); CLARITY,URINE HAZY; COLOR,URINE YELLOW; GLUCOSE,URINE NEG (NEG); NITRITE,URINE NEG (NEG); SQUAMOUS EPITHELIAL CELL,UR MANY /LPF; UROBILINOGEN,URINE 0.2 mg/dL (0.2 mg/dL); WBC,URINE >40 /HPF (0-4)
[2021-04-05] MEDS ORDERED: VALA10008 PO (15:13)
[2021-04-05] MEDS ORDERED: CEPH500C PO (15:13)
[2021-04-05] MEDS ORDERED: DOXY100C3 PO (15:13)
--- NOTE | 2021-04-05 15:14 | PHYS DOC ---
Past History Past Medical History: Anxiety, Bipolar, Bronchitis, Other Additional Past Medical Histor: self- cutting (KANG LICONA APRN) Past Surgical History: No Surgical History (KANG LICONA APRN) Smoking: Cigarettes Alcohol Use: None Drug Use: Marijuana, Methamphetamine (KANG LICONA APRN) Adult General Chief Complaint Chief Complaint: PAIN ON URINATION HPI HPI Patient is a 20-year-old female presents to the emergency department complaining of a painful itching vaginal lesion that she woke up with this morning. Patient also complains of malodorous vaginal discharge that started today. Patient reports unprotected vaginal intercourse with multiple sexual partners, reports her last sexual partner is new, had unprotected sex last week with. Patient denies fever or chills, nausea, vomiting, diarrhea. Patient does report painful urination with increased urinary frequency that started last night, patient denies seeing blood in her urine. Patient denies other physical complaints or p hysical concerns. (KANG LICONA APRN) Review of Systems Review of Systems 14 body systems of review of systems have been reviewed. See HPI for pertinent positives and negative responses, otherwise all other systems are negative, nonpertinent or noncontributory. Constitutional: Negative except as outlined in HPI above. Skin: Negative except as outlined in HPI above. Eyes: Negative except as outlined in HPI above. HENT: Negative except as outlined in HPI above. Respiratory: Negative except as outlined in HPI above. Cardiovascular: Negative except as outlined in HPI above. GI: Negative except as outlined in HPI above. : Negative except as outlined in HPI above. Musculoskeletal: Negative except as outlined in HPI above. Integument: Negative except as outlined in HPI above. Neurologic: Negative except as outlined in HPI above. Endocrine: Negative except as outlined in HPI above. Lymphatic: Negative except as outlined in HPI above. Psychiatric: Negative except as outlined in HPI above. (KANG LICONA APRN) Allergies Allergies Allergies Coded Allergies Type Severity Reaction Last Updated Verified No Known Drug Allergies 03/16/21 No (KANG LICONA APRN) Physical Exam Physical Exam Constitutional: Well developed, well nourished, no acute distress, non-toxic appearance. 20-year-old female in no apparent distress. HENT: Normocephalic, atraumatic. Eyes: Conjunctiva normal, no discharge. Neck: Normal range of motion. Cardiovascular: Distal cap refill less than 2 seconds, no cyanosis appreciated. Lungs & Thorax: Patient is in no respiratory distress, no adventitious lung sounds appreciated. Abdomen: Bowel sounds normal, soft, no tenderness, no masses, no pulsatile masses. No bruising or skin discoloration of the abdomen. Skin: Warm, dry, no erythema, no rash. Back: No tenderness, no CVA tenderness. Extremities: No tenderness, no cyanosis, no clubbing, ROM intact, no edema. Neurologic: Alert and oriented X 3, normal motor function, normal sensory function, no focal deficits noted. Psychologic: Affect normal, judgement normal, mood normal. : External vaginal examination performed with female nurse at bedside for marine habitat resource specialist reveals a 2 mm open skin lesion, nonerythematous, at the 5 o'clock position of the vaginal opening of labia, no other lesions or rashes of the vaginal or external structures appreciated, speculum examination deferred, patient self swabbed for wet prep/GC/chlamydia. (KANG LICONA APRN) Current Patient Data Lab Results Laboratory Tests Test 04/05/21 13:10 04/05/21 13:21 Urine Collection Type Clean catch Urine Color Yellow Urine Clarity Hazy Urine pH 6.5 Urine Specific [place] >=1.030 Urine Protein Trace Urine Glucose (UA) Neg mg/dL Urine Ketones (Stick) Neg mg/dL Urine Blood Trace Urine Nitrite Neg Urine Bilirubin Neg Urine Urobilinogen Dipstick 0.2 mg/dL Urine Leukocyte Esterase Small Urine RBC 3-5 /HPF Urine WBC >40 /HPF Urine Squamous Epithelial Cells Many /LPF Urine Bacteria Mod /HPF Bedside Urine HCG, Qualitative hcg negative Laboratory Tests Test 04/05/21 13:10 04/05/21 13:21 Urine Collection Type Clean catch Urine Color Yellow Urine Clarity Hazy Urine pH 6.5 Urine Specific [place] >=1.030 Urine Protein Trace (NEG-TRACE) Urine Glucose (UA) Neg mg/dL (NEG) Urine Ketones (Stick) Neg mg/dL (NEG) Urine Blood Trace (NEG) Urine Nitrite Neg (NEG) Urine Bilirubin Neg (NEG) Urine Urobilinogen Dipstick 0.2 mg/dL (0.2 mg/dL) Urine Leukocyte Esterase Small (NEG) Urine RBC 3-5 /HPF (0-2) Urine WBC >40 /HPF (0-4) Urine Squamous Epithelial Cells Many /LPF Urine Bacteria Mod /HPF (0-FEW) POC Urine HCG, Qualitative hcg negative (Negative) Microbiology 04/05/21 Wet Prep - Final, Complete (KANG LICONA APRN) EKG EKG [] (KANG LICONA APRN) Radiology/Procedures Radiology/Procedures [] (KANG LICONA APRN) Heart Score C/O Chest Pain: No Risk Factors: Risk Factors: DM, Current or recent (<one month) smoker, HTN, HLP, family history of CAD, obesity. Risk Scores: Risk Factors: DM, Current or recent (<one month) smoker, HTN, HLP, family history of CAD, obesity. (KANG LICONA APRN) Course & Med Decision Making Course & Med Decision Making Pertinent Labs and Imaging studies reviewed. (See chart for details) 20-year-old female, vital signs reviewed, presents emergency department with STI concerns. Physical examination concerning for vaginal herpes. Wet prep negative, GC chlamydia pending, the patient's urine is infected, will treat for vaginal herpes, prophylactically treat for GC chlamydia related to patient's high risk sexual history, will treat urinary tract infection, discussed with patient safe sex practices, follow-up with primary care for reevaluation of STIs, patient gave verbal understanding of and is amenable to ED discharge planning. Viral swab obtained vaginal lesions sent to lab for herpes study Discussed with the patient all findings and diagnostic testing as well as the need to follow-up with their primary care provider for further evaluation and treatment or return to the ED if any new or worsening symptoms. Strict return precautions were also discussed at length, the patient voiced understanding and agreement with the discharge planning. The patient was nontoxic in appearance, in no apparent distress, and hemodynamically stable at the time of disposition. (KANG LICONA APRN) Course & Med Decision Making I was the Attending physician on the above date of service of this patient. This patient was evaluated, examined, treated, and dispositioned from the emergency department by the mid-level practitioner. Although I was working at the time , no assistance was requested. Electronically signed, Leon Garner DO (LEON GARNER DO) Keturah Disclaimer Keturah Disclaimer This electronic medical record was generated, in whole or in part, using a voice recognition dictation system. (KANG LICONA APRN) Departure Departure: Impression: Primary Impression: UTI (urinary tract infection) Additional Impressions: Vaginal lesion STI (sexually transmitted infection) Disposition: HOME / SELF CARE / HOMELESS Condition: GOOD Referrals: WALLACE BROWN MD (PCP) Patient Instructions: Chlamydia Test, Gonorrhea Culture, Sexuality and Disability, Urinary Tract Infection Additional Instructions: You were seen today in the emergency department for urinary tract infection type signs and symptoms with vaginal discharge and also a vaginal lesion. Wet prep testing today did not show any yeast, trichomonas, or bacterial vaginosis signs. You do have a vaginal lesion that I suspect is herpes. A culture was drawn, I am starting you on antivirals today. Your urine is infected, I am starting you on an antibiotic for your urinary tract infection. I am also treating you today for gonorrhea and chlamydia. Please use condom barrier sex to help prevent spread of sexually transmitted infections. Follow-up with your primary care physician for ongoing treatment of sexually transmitted diseases. Take all prescribed antibiotics and antivirals as directed until completed. Thank you for visiting our Emergency Department. It was a pleasure taking care of you today in the emergency department and we appreciate you trusting us with your care. If any additional problems come up don't hesitate to return to visit us. Please follow up with your primary care provider so they can plan additional care if needed and know about the problem that you had. If symptoms worsen come back to the Emergency Department. Any concerning symptoms that start such as chest pain, shortness of air, weakness or numbness on one side of the body, running high fevers or any other concerning symptoms return to the ER. Scripts Valacyclovir Hcl (VALACYCLOVIR) 1,000 Mg Tablet 1 TAB PO BID for GENITAL HERPES for 10 Days, #20 TAB 0 Refills Prov: KANG LICONA APRN 04/05/21 Doxycycline Hyclate (DOXYCYCLINE HYCLATE) 100 Mg Capsule 1 CAP PO BID for STI, #14 CAP 0 Refills Prov: KANG LICONA APRN 04/05/21 Cephalexin (KEFLEX) 500 Mg Capsule 1 CAP PO BID for UTI for 7 Days, #14 CAP 0 Refills Prov: KANG LICONA APRN 04/05/21 Problem Qualifiers Primary Impression: UTI (urinary tract infection) Urinary tract infection type: site unspecified Hematuria presence: with hematuria Qualified Codes: N39.0 - Urinary tract infection, site not specified; R31.9 - Hematuria, unspecified KANG LICONA APRN Apr 05, 2021 15:14 LEON GARNER DO Apr 08, 2021 06:58
[2021-04-05] MEDS ORDERED: cefTRIAXone IM 500 MG VIAL. IM ONE ×2 (15:25→15:30)
[2021-04-05 15:30] VITALS: BP 129/83
[2021-04-06] MEDS ORDERED: PHEN100T82 PO (13:23)
[2021-04-10 07:10] LABS: HERPES SIMPLEX TYPE 1 Negative (Negative); HERPES SIMPLEX TYPE 2 Positive (Negative)
== END 2021-04-05 15:30 | disposition home or self-care (01) ==
LOC: ER 12:46
DX: N39.0 Urinary tract infection, site not specified (principal); N89.8 Other specified noninflammatory disorders of vagina; A64 Unspecified sexually transmitted disease; F17.210 Nicotine dependence, cigarettes, uncomplicated; F31.9 Bipolar disorder, unspecified
CPT/HCPCS: 81001; 81025; 87086; 87252; 87491; 87529; 87591; 96372; 99283; J0696; Q0111; 36415

== ENCOUNTER 2021-04-06 11:18 | Emergency (ER) | payer OTHER ==
[~2021-04-06] VITALS: Ht 170.2 cm; Wt 105.4 kg
[~2021-04-06 11:18] MED LIST changes: +CEPH500C PO; +DOXY100C3 PO; +VALA10008 PO
[2021-04-06 11:30] VITALS: BP 157/88
[2021-04-06] MEDS ORDERED: PHEN100T82 PO (13:23)
--- NOTE | 2021-04-06 13:23 | PHYS DOC ---
Past History Past Medical History: Anxiety, Bipolar, Bronchitis, Other Additional Past Medical Histor: self- cutting Past Surgical History: No Surgical History Smoking: Cigarettes Alcohol Use: Occasionally Drug Use: Marijuana, Methamphetamine Adult General Chief Complaint Chief Complaint: OTHER COMPLAINTS HPI HPI Patient is a 20-year-old female presents emergency department concerning new lesions near her rectum that are burning and painful to touch. Patient also complains of increased urinary pressure and increase urinary pain with urin ation. Patient reports he was seen and treated yesterday here in the emergency department for similar symptoms, reports she was diagnosed with genital herpes, urinary tract infection, was treated with medications and sent home. Patient denies other physical complaints or physical concerns. Review of Systems Review of Systems 14 body systems of review of systems have been reviewed. See HPI for pertinent positives and negative responses, otherwise all other systems are negative, nonpertinent or noncontributory. Constitutional: Negative except as outlined in HPI above. Skin: Negative except as outlined in HPI above. Eyes: Negative except as outlined in HPI above. HENT: Negative except as outlined in HPI above. Respiratory: Negative except as outlined in HPI above. Cardiovascular: Negative except as outlined in HPI above. GI: Negative except as outlined in HPI above. : Negative except as outlined in HPI above. Musculoskeletal: Negative except as outlined in HPI above. Integument: Negative except as outlined in HPI above. Neurologic: Negative except as outlined in HPI above. Endocrine: Negative except as outlined in HPI above. Lymphatic: Negative except as outlined in HPI above. Psychiatric: Negative except as outlined in HPI above. Allergies Allergies Allergies Coded Allergies Type Severity Reaction Last Updated Verified No Known Drug Allergies 03/16/21 No Physical Exam Physical Exam Constitutional: Well developed, well nourished, no acute distress, non-toxic bessie earance. 20-year-old female in no apparent distress. HENT: Normocephalic, atraumatic. Eyes: Conjunctiva normal, no discharge. Neck: Normal range of motion. Cardiovascular: Distal cap refill less than 2 seconds, no cyanosis appreciated. Lungs & Thorax: Patient is in no respiratory distress, no adventitious lung sounds appreciated. Abdomen: Bowel sounds normal, soft, no tenderness, no masses, no pulsatile masses. No bruising or skin discoloration of the abdomen. Skin: Warm, dry, no erythema, no rash. Back: No tenderness, no CVA tenderness. Extremities: No tenderness, no cyanosis, no clubbing, ROM intact, no edema. Neurologic: Alert and oriented X 3, normal motor function, normal sensory function, no focal deficits noted. Psychologic: Affect normal, judgement normal, mood normal. : Examination of genital lesions performed with female ED nurse at bedside for metal roofing mechanic, there is a 2 mm lesion near the rectum at the 12 o'clock position, lesion at 5 o'clock position on labia just outside vaginal opening 2 mm. No drainage or discharge from vaginal opening appreciated. Current Patient Data Vital Signs Vital Signs Date Time Temp Pulse Resp B/P (MAP) Pulse Ox O2 Delivery O2 Flow Rate FiO2 04/06/21 11:30 110 18 157/88 (111) 97 EKG EKG [] Radiology/Procedures Radiology/Procedures [] Heart Score C/O Chest Pain: No Risk Factors: Risk Factors: DM, Current or recent (<one month) smoker, HTN, HLP, family history of CAD, obesity. Risk Scores: Risk Factors: DM, Current or recent (<one month) smoker, HTN, HLP, family history of CAD, obesity. Course & Med Decision Making Course & Med Decision Making Pertinent Labs and Imaging studies reviewed. (See chart for details) 20-year-old female, vital signs reviewed, presents emergency department concerning more lesions in genital area when she woke up this morning, also complains of increased dysuria. Examination of the rectum area reveals 2 mm lesion at 12 o'clock position most likely herpetic in nature, patient was examined yesterday, lesions in genital area were swabbed and sent to lab for viral study, patient was started on valacyclovir regimen, Keflex for urinary tract infection, treated prophylactically for gonorrhea chlamydia with Rocephin IM injection in emergency department and prescription for doxycycline related to high risk sexual behavior. Discussed with patient will start on Pyridium for dysuria, first dose in ED today, will prescribe medication to [facility]. Strict follow-up with primary care this week, patient reports she has an appointment with her primary care physician tomorrow. Patient gave verbal understanding of and is amenable to ED discharge planning. Discussed with the patient all findings and diagnostic testing as well as the need to follow-up with their primary care provider for further evaluation and treatment or return to the ED if any new or worsening symptoms. Strict return precautions were also discussed at length, the patient voiced understanding and agreement with the discharge planning. The patient was nontoxic in appearance, in no apparent distress, and hemodynamically stable at the time of disposition. Keturah Disclaimer Keturah Disclaimer This electronic medical record was generated, in whole or in part, using a voice recognition dictation system. Departure Departure: Impression: Primary Impression: Dysuria Additional Impression: Genital lesion, female Disposition: HOME / SELF CARE / HOMELESS Condition: GOOD Referrals: WALLACE BROWN MD (PCP) Patient Instructions: Genital Herpes, Urinary Tract Infection Additional Instructions: You were seen today in the emergency department for more genital lesions, pressure with pain on urination. You are treated today with a medication called Pyridium, this helps with urinary discomfort. I have prescribed for you the same medication and sent to the pharmacy of your choice. Please continue to take your prescribed antivirals and urinary tract infection medication along with the sexually transmitted disease antibiotics, please keep your appointments with your primary care physician. Return to the emergency department for worsening symptoms or other concerns. Thank you for visiting our Emergency Department. It was a pleasure taking care of you today in the emergency department and we appreciate you trusting us with your care. If any additional problems come up don't hesitate to return to visit us. Please follow up with your primary care provider so they can plan additional care if needed and know about the problem that you had. If symptoms worsen come back to the Emergency Department. Any concerning symptoms that start such as chest pain, shortness of air, weakness or numbness on one side of the body, running high fevers or any other concerning symptoms return to the ER. Scripts Phenazopyridine Hcl (PYRIDIUM) 100 Mg Tablet 1 TAB PO TID for urinary discomfort for 2 Days, #6 TAB 0 Refills Prov: KANG LICONA APRN 04/06/21 Problem Qualifiers KANG LICONA APRN Apr 06, 2021 13:23
[2021-04-06] MEDS ORDERED: PHENAZOPYRIDINE 200 MG TABLET. PO ONE (13:45)
== END 2021-04-06 13:33 | disposition home or self-care (01) ==
LOC: ER 11:18
DX: N94.89 Other specified conditions associated with female genital organs and menstrual cycle (principal); R30.0 Dysuria; F41.9 Anxiety disorder, unspecified; F31.9 Bipolar disorder, unspecified; F17.210 Nicotine dependence, cigarettes, uncomplicated
CPT/HCPCS: 99282

== ENCOUNTER 2021-04-15 18:10 | Emergency (ER) | payer OTHER ==
[~2021-04-15 18:10] MED LIST changes: +PHEN100T82 PO
== END 2021-04-15 19:30 | disposition left against medical advice (07) ==
LOC: ER 18:10
DX: R10.9 Unspecified abdominal pain (principal); Z53.21 Procedure and treatment not carried out due to patient leaving prior to being seen by health care provider